=== PATIENT | female | born 1995 | race Hispanic/Latino ===

== ENCOUNTER 2018-12-18 00:03 | Emergency (ER) | payer SELFPAY ==
[2018-12-18] MEDS ORDERED: FAMOTIDINE 20 MG TAB ONE (00:42)
[2018-12-18] MEDS ORDERED: predniSONE 20 MG TAB ONE (00:42)
[2018-12-18] MEDS ORDERED: ALBUTEROL 2.5 MG/3 ML NEB SOL ONE (00:42)
--- NOTE | 2018-12-18 01:11 | ER ---
Nurse's Notes [facility] Name: Tonya Barrera Age: 23 yrs Sex: Female : 1995 Arrival Date: 12/18/2018 Time: 00:06 Bed 5 Private MD: Diagnosis: Bronchitis, not specified as acute or chronic Presentation: 12/18 00:22 Presenting complaint: Patient states: Cough x 2 weeks, but states she now has pain to lp1 both sides of chest when she coughs; Denies any fever. Transition of care: patient was not received from another setting of care. Onset of symptoms was December 18, 2018. Risk Assessment: Do you want to hurt yourself or someone else? Patient reports no desire to harm self or others. Initial Sepsis Screen: Does the patient meet any 2 criteria? No. Patient's initial sepsis screen is negative. Does the patient have a suspected source of infection? No. Patient's initial sepsis screen is negative. Care prior to arrival: None. 00:22 Method Of Arrival: Ambulatory lp1 00:22 Acuity: TEMO 4 lp1 Historical: - Allergies: 00:24 No Known Allergies; lp1 - Home Meds: 00:24 control daily [Active]; lp1 - PMHx: 00:24 Asthma; lp1 - PSHx: 00:24 Cholecystectomy; lp1 - Immunization history:: Adult Immunizations up to date, Flu vaccine is not up to date. - Social history:: Smoking status: Patient/guardian denies using tobacco. - Ebola Screening: : No symptoms or risks identified at this time. Screenin:36 Abuse screen: Denies threats or abuse. Denies injuries from another. Nutritional lp1 screening: No deficits noted. Tuberculosis screening: No symptoms or risk factors identified. Fall Risk None identified. Assessment: 00:33 General: Appears in no apparent distress. Behavior is calm. Pain: Complains of pain in lp1 left lateral anterior chest and right lateral anterior chest Pain currently is 6 out of 10 on a pain scale. Aggravated by coughing. Neuro: No deficits noted. Cardiovascular: No deficits noted. Respiratory: Reports cough that is dry, persistent Respiratory effort is even, unlabored, Respiratory pattern is regular, Breath sounds are clear bilaterally. GI: No deficits noted. : No signs and/or symptoms were reported regarding the genitourinary system. EENT: No signs and/or symptoms were reported regarding the EENT system. Derm: Skin is pink, warm \T\ dry. Musculoskeletal: No deficits noted. 00:45 Reassessment: Patient returned from radiology. lp1 Vital Signs: 00:24 BP 145 / 95; Pulse 100; Resp 20; Temp 99(O); Pulse Ox 100% on R/A; Weight 104.33 kg; lp1 Height 5 ft. 2 in. (157.48 cm); Pain 6/10; 00:24 Body Mass Index 42.07 (104.33 kg, 157.48 cm) lp1 ED Course: 00:06 Patient arrived in ED. am2 00:10 [facility] snw 00:10 Demar Anguiano MD is Attending Physician. snw 00:21 Elise Smyth RN is Primary Nurse. lp1 00:23 Triage completed. lp1 00:25 Arm band placed on left wrist. lp1 00:32 Patient moved to radiology via wheelchair. kw 00:32 X-ray completed. Patient tolerated procedure well. kw 00:32 Patient moved back from radiology. kw 00:32 Chest Pa And Lat (2 Views) XRAY In Process Unspecified. EDMS 00:36 Patient has correct armband on for positive identification. lp1 00:36 No provider procedures requiring assistance completed. Patient did not have IV access lp1 during this emergency room visit. Administered Medications: 00:45 Drug: predniSONE 40 mg Route: PO; lp1 01:26 Follow up: Response: No adverse reaction lp1 00:46 Drug: Pepcid 20 mg Route: PO; lp1 01:26 Follow up: Response: No adverse reaction lp1 00:46 Drug: Albuterol 2.5 mg Route: Inhalation; lp1 01:26 Follow up: Response: Marked relief of symptoms lp1 Outcome: 01:10 Discharge ordered by . snw 01:26 Discharged to home ambulatory. lp1 01:26 Condition: good 01:26 Discharge instructions given to patient, Instructed on discharge instructions, follow up and referral plans. medication usage, Demonstrated understanding of instructions, follow-up care, medications, Prescriptions given X 4. 01:27 Patient left the ED. lp1 Signatures: Dispatcher [employer] EDMS Cami Jain FNP-C FNP-Csnw [place] Laura, RN RN lp1 Rhianna Lewis am2
--- NOTE | 2018-12-18 01:11 | EDPHYS ---
Physician Documentation [facility] Name: Tonya Barrera Age: 23 yrs Sex: Female : 1995 Arrival Date: 12/18/2018 Time: 00:06 Bed 5 Private MD: ED Physician Demar Anguiano HPI: 12/18 00:24 This 23 yrs old Female presents to ER via Ambulatory with complaints of Cough. snw 00:24 The patient or guardian reports cough, described as moderate, with no sputum. Onset: snw The symptoms/episode began/occurred suddenly, 2 week(s) ago, and became persistent. Severity of symptoms: At their worst the symptoms were moderate. Associated signs and symptoms: Pertinent negatives: ear ache, fever, nausea, rhinorrhea, sore throat. The patient has not experienced similar symptoms in the past, but family has similar symptoms. The patient has not recently seen a physician. Historical: - Allergies: 00:24 No Known Allergies; lp1 - Home Meds: 00:24 control daily [Active]; lp1 - PMHx: 00:24 Asthma; lp1 - PSHx: 00:24 Cholecystectomy; lp1 - Immunization history:: Adult Immunizations up to date, Flu vaccine is not up to date. - Social history:: Smoking status: Patient/guardian denies using tobacco. - Ebola Screening: : No symptoms or risks identified at this time. ROS: 00:22 Constitutional: Negative for fever, chills, and weight loss, Eyes: Negative for injury, snw pain, redness, and discharge, ENT: Negative for injury, pain, and discharge, Neck: Negative for injury, pain, and swelling, Cardiovascular: Negative for chest pain, palpitations, and edema, Respiratory: Negative for shortness of breath, wheezing, and mild pleuritic chest pain, harsh dry cough Abdomen/GI: Negative for abdominal pain, nausea, vomiting, diarrhea, and constipation, Back: Negative for injury and pain, : Negative for injury, bleeding, discharge, and swelling, MS/Extremity: Negative for injury and deformity, Skin: Negative for injury, rash, and discoloration, Neuro: Negative for headache, weakness, numbness, tingling, and seizure, Psych: Negative for depression, anxiety, suicide ideation, homicidal ideation, and hallucinations. Exam: 00:21 Head/Face: Normocephalic, atraumatic. Eyes: Pupils equal round and reactive to light, snw extra-ocular motions intact. Lids and lashes normal. Conjunctiva and sclera are non-icteric and not injected. Cornea within normal limits. Periorbital areas with no swelling, redness, or edema. ENT: Nares patent. No nasal discharge, no septal abnormalities noted. Tympanic membranes are normal and external auditory canals are clear. Oropharynx with no redness, swelling, or masses, exudates, or evidence of obstruction, uvula midline. Mucous membranes moist. Neck: Trachea midline, no thyromegaly or masses palpated, and no cervical lymphadenopathy. Supple, full range of motion without nuchal rigidity, or vertebral point tenderness. No Meningismus. Chest/axilla: Normal chest wall appearance and motion. Nontender with no deformity. No lesions are appreciated. Cardiovascular: Regular rate and rhythm with a normal S1 and S2. No gallops, murmurs, or rubs. Normal PMI, no JVD. No pulse deficits. 00:21 Abdomen/GI: Soft, non-tender, with normal bowel sounds. No distension or tympany. No guarding or rebound. No evidence of tenderness throughout. Back: No spinal tenderness. No costovertebral tenderness. Full range of motion. Skin: Warm, dry with normal turgor. Normal color with no rashes, no lesions, and no evidence of cellulitis. MS/ Extremity: Pulses equal, no cyanosis. Neurovascular intact. Full, normal range of motion. Neuro: Awake and alert, GCS 15, oriented to person, place, time, and situation. Cranial nerves II-XII grossly intact. Motor strength 5/5 in all extremities. Sensory grossly intact. Cerebellar exam normal. Normal gait. Psych: Awake, alert, with orientation to person, place and time. Behavior, mood, and affect are within normal limits. 00:21 Constitutional: The patient appears alert, awake, obese. 00:21 Respiratory: the patient does not display signs of respiratory distress, Respirations: normal, shallow respirations, tachypnea, Breath sounds: are clear throughout, bronchitic cough. Vital Signs: 00:24 BP 145 / 95; Pulse 100; Resp 20; Temp 99(O); Pulse Ox 100% on R/A; Weight 104.33 kg; lp1 Height 5 ft. 2 in. (157.48 cm); Pain 02/03; 00:24 Body Mass Index 42.07 (104.33 kg, 157.48 cm) lp1 MDM: 00:15 Patient medically screened. snw 01:13 Data reviewed: vital signs, nurses notes. Data interpreted: Pulse oximetry: on room air snw is 100 %. Interpretation: normal. Counseling: I had a detailed discussion with the patient and/or guardian regarding: the historical points, exam findings, and any diagnostic results supporting the discharge/admit diagnosis, the presence of at least one elevated blood pressure reading (>120/80) during this emergency department visit, the need for outpatient follow up, to return to the emergency department if symptoms worsen or persist or if there are any questions or concerns that arise at home. Special discussion: I have referred the patient to see his PCP for further evaluation of high blood pressure. Based on the history and exam findings, there is no indication for further emergent testing or inpatient evaluation. I discussed with the patient/guardian the need to see the primary care provider for further evaluation of the symptoms. 12/18 00:21 Order name: Chest Pa And Lat (2 Views) XRAY snw Administered Medications: 00:45 Drug: predniSONE 40 mg Route: PO; lp1 01:26 Follow up: Response: No adverse reaction lp1 00:46 Drug: Pepcid 20 mg Route: PO; lp1 01:26 Follow up: Response: No adverse reaction lp1 00:46 Drug: Albuterol 2.5 mg Route: Inhalation; lp1 01:26 Follow up: Response: Marked relief of symptoms lp1 Disposition: 02:47 Co-signature as Attending Physician, Demar Anguiano MD. rn Disposition: 12/18/18 01:10 Discharged to Home. Impression: Bronchitis, not specified as acute or chronic. - Condition is Stable. - Discharge Instructions: Acute Bronchitis, Adult, Hypertension, How to Use an Inhaler, Cool Mist Vaporizer, Cough, Adult. - Prescriptions for Tessalon Perles 100 mg Oral Capsule - take 1 capsule by ORAL route every 8 hours As needed; 15 capsule. Prednisone 20 mg Oral Tablet - take 2 tablet by ORAL route once daily for 5 days; 10 tablet. Albuterol Sulfate 90 mcg/actuation - inhale 1-2 puff by INHALATION route every 4-6 hours; 1 Inhaler. Pepcid 20 mg Oral Tablet - take 1 tablet by ORAL route once daily; 20 tablet. - Work release form, Medication Reconciliation Form, Thank You Letter, Antibiotic Education, Prescription Opioid Use form. - Follow up: Emergency Department; When: As needed; Reason: Worsening of condition. Follow up: Private Physician; When: 2 - 3 days; Reason: Recheck today's complaints, Continuance of care, Re-evaluation by your physician. Signatures: Dispatcher [employer] EDKS Cami Jain, ANANTH-C PAINTING MANAGER-Csnw Demar Anguiano MD MD rn Elise Smyth RN RN lp1 Corrections: (The following items were deleted from the chart) 01:27 01:10 12/18/2018 01:10 Discharged to Home. Impression: Bronchitis, not specified as lp1 acute or chronic. Condition is Stable. Forms are Medication Reconciliation Form, Thank You Letter, Antibiotic Education, Prescription Opioid Use. Follow up: Emergency Department; When: As needed; Reason: Worsening of condition. Follow up: Private Physician; When: 2 - 3 days; Reason: Recheck today's complaints, Continuance of care, Re-evaluation by your physician. snw
--- NOTE | 2018-12-18 08:01 | RAD REPORT ---
EXAM DESCRIPTION: Ford Magana (2 Views)12/18/2018 12:34 am CLINICAL HISTORY: Cough COMPARISON: None FINDINGS: The lungs appear clear of acute infiltrate. The heart is normal size IMPRESSION: No acute abnormalities displayed
== END 2018-12-18 01:27 | disposition home or self-care (01) ==
LOC: ER 00:03
DX: J40 Bronchitis, not specified as acute or chronic (principal)
CPT/HCPCS: 71046; 99284; J7512

== ENCOUNTER 2019-11-11 11:27 | Emergency (ER) | payer SELFPAY ==
--- OUTSIDE RECORDS SUMMARY | 2019-11-11 11:29 | XMS REPORT ---
:1995 [facility] Address [address] [place] [address] [address] [place] [address] Care Team Providers Name Role Phone Unavailable Unavailable Unavailable Problems This patient has no known problems. Allergies, Adverse Reactions, Alerts This patient has no known allergies or adverse reactions. Medications This patient has no known medications.
--- OUTSIDE RECORDS SUMMARY | 2019-11-11 11:29 | XMS REPORT | Summary of Care ---
:1995 Author Organization [facility] [place] Address [address] [place] [address] Care Team Providers Name Role Phone Pcp, Patient Does Not Have A Primary Care Provider Encounter Details Date Type Department Care Team Description 04/30/2019 Orders Only [facility] Doctor Unassigned, No [address] [facility] [place] [address] [address] [place] [address] Allergies No Known Allergiesdocumented as of this encounter (statuses as of 04/30/2019) Medications Medication Sig Dispensed Refills Start Date End Date Status sod Use 1 Bottle in 1 Each 0 12/20/2018 Active gwjrq-[id number] each nostril 2 bottle (NEILMED SINUS (two) times daily. RINSE COMPLETE) Use in hot shower pkdvIndications: Rib 1 hour before pain, Cough, Acute bedtime otitis media, unspecified otitis media type, Postnasal drip, Costochondritis, acute promethazine-codeine Take 5 mL by mouth 120 mL 0 12/20/2018 Active 6.25-10 mg/5 mL 4 (four) times syrupIndications: Rib daily as needed pain, Cough, Acute for Cough. otitis media, unspecified otitis media type, Postnasal drip, Costochondritis, acute loratadine 10 mg Take 1 tablet by 30 tablet 0 12/20/2018 Active tabletIndications: Rib mouth daily. pain, Cough, Acute otitis media, unspecified otitis media type, Postnasal drip, Costochondritis, acute documented as of this encounter (statuses as of 04/30/2019) Active Problems No known active problemsdocumented as of this encounter (statuses as of 2018) Social History Tobacco Use Types Packs/Day Years Used Date Never Assessed Sex Assigned at Date Recorded Not on file Job Start Date Occupation Industry Not on file Not on file Not on file Travel History Travel Start Travel End No recent travel history available. documented as of this encounter Last Filed Vital Signs Not on filedocumented in this encounter Plan of Treatment Health Maintenance Due Date Last Done Comments VARICELLA VACCINES (1 of 2 - 13+ 2007 2-dose series) HPV VACCINES (1 - Female 3-dose 2009 series) DTaP,Tdap,and Td Vaccines (1 - 2013 Tdap) PAP SMEAR 2015 INFLUENZA VACCINE (#1) 2019 PNEUMOCOCCAL 0-64 YEARS COMBINED Aged Out No longer eligible based on SERIES patient's age to complete this topic documented as of this encounter Procedures Procedure Name Priority Date/Time Associated Diagnosis Comments NOTICE OF PRIVACY Routine 04/30/2019 3:23 PM CDT PRACTICES documented in this encounter Results Not on filedocumented in this encounter Insurance Payer Benefit Plan Subscriber ID Effective Phone Address Type / Group Dates [employer] [place] [employer] [place] xxxxxxxxx 2019-[place] [phone] Medicaid WOMEN WOMEN nt [address] [place] [address] documented as of this encounter
--- OUTSIDE RECORDS SUMMARY | 2019-11-11 11:30 | XMS REPORT | Summary of Care ---
:1995 Author Organization [facility] Address [address] [place] [address] Care Team Providers Name Role Phone Caty Islas Primary Care Provider Encounter Details Date Type Department Care Team Description 10/30/2019 Orders Only [facility] Doctor Unassigned, No [address] [facility] Name [place] [phone] [place] [address] Allergies No Known Allergiesdocumented as of this encounter (statuses as of 10/30/2019) Medications Medication Sig Dispensed Refills Start Date End Date Status ALBUTEROL SULFATE HFA INHALE Inhale. 0 Active documented as of this encounter (statuses as of 10/30/2019) Active Problems Problem Noted Date Morbid obesity with body mass index (BMI) greater than or equal to 50 2018 Irregular menses 04/30/2019 Weight gain 04/30/2019 Acanthosis nigricans 04/30/2019 documented as of this encounter (statuses as of 10/30/2019) Social History Tobacco Use Types Packs/Day Years Used Date Former Smoker Cigarettes Quit: 2017 Smokeless Tobacco: Never Used Alcohol Use Drinks/Week oz/Week Comments Yes occasional Sex Assigned at Date Recorded Not on [...] DTaP,Tdap,and Td Vaccines (1 - 2013 Tdap) INFLUENZA VACCINE (#1) 2019 PAP SMEAR 04/30/2022 04/30/2019 PNEUMOCOCCAL 0-64 YEARS COMBINED Aged Out No longer eligible based on SERIES patient's age to complete this topic documented as of this encounter Procedures Procedure Name Priority Date/Time Associated Diagnosis Comments CONSENT/REFUSAL FOR Routine 10/30/2019 1:01 PM GEOGRAPHICAL HISTORIAN DIAGNOSIS AND TREATMENT documented in this encounter Results Not on filedocumented in this encounter Insurance Payer Benefit Plan Subscriber ID Effective Phone Address Type / Group Dates [facility]-Prese [phone] Medicaid WOMEN nt [address] [place] [address] documented as of this encounter Advance Directives Name Relationship Healthcare Agent Communication Relationship Yahir Michaels Significant Other Primary healthcare agent
--- OUTSIDE RECORDS SUMMARY | 2019-11-11 11:30 | XMS REPORT | Summary of Care ---
:1995 Author Organization [facility] Address [address] [place] [address] Care Team Providers Name Role Phone Cayt Islas [facility] Primary Care Provider Reason for Visit Reason Comments Well Woman Exam Encounter Details Date Type Department Care Team Description 04/30[facility], Well woman [facility] (Primary Dx); [facility] Morbid obesity with body mass index (BMI) greater than or equal to 50; [address] Irregular menses; [place], [place] Screen for STD (sexually transmitted disease); [address] [place] [address] Weight gain [phone] Allergies No Known Allergiesdocumented as of this encounter (statuses as of 04/30/2019) Medications Medication Sig Dispensed Refills Start Date End Date Status ALBUTEROL SULFATE Inhale. 0 Active HFA INHALE sod Use 1 Bottle 1 Each 0 12/20/2018 04/30/2019 Discontinued [id number]-[id number] in each z bottle (NEILMED nostril 2 SINUS RINSE (two) times COMPLETE) daily. Use in pkdvIndications: hot shower 1 Rib pain, Cough, hour before Acute otitis bedtime media, unspecified otitis media type, Postnasal drip, Costochondritis, acute promethazine-codei Take 5 mL by 120 mL 0 12/20/2018 04/30/2019 Discontinued ne 6.25-10 mg/5 mL mouth 4 (four) syrupIndications: times daily as Rib pain, Cough, needed for Acute otitis Cough. media, unspecified otitis media type, Postnasal drip, Costochondritis, acute loratadine 10 mg Take 1 tablet 30 tablet 0 12/20/2018 04/30/2019 Discontinued tabletIndications: by mouth Rib pain, Cough, daily. Acute otitis media, unspecified otitis media type, Postnasal drip, Costochondritis, acute documented as of this encounter (statuses as of 04/30/2019) Active Problems Problem Noted Date Morbid obesity with body mass index (BMI) greater than or equal to 50 2018 Irregular menses 04/30/2019 Weight gain 04/30/2019 Acanthosis nigricans 04/30/2019 documented as of this encounter (statuses as of 04/30/2019) Social History Tobacco Use Types Packs/Day Years Used Date Former Smoker Cigarettes Quit: 2016 Smokeless Tobacco: Never Used Tobacco Cessation: Counseling Given: Yes Alcohol Use Drinks/Week oz/Week Comments Yes occasional Sex Assigned at Date Recorded Not on file Job Start Date Occupation Industry Not on file Not on file Not on file Travel History Travel Start Travel End No recent travel history available. documented as of this encounter Last Filed Vital Signs Vital Sign Reading Time Taken Comments Blood Pressure 124/86 04/30/2019 3:49 PM CDT Pulse 71 04/30/2019 3:49 PM CDT Temperature 36.6 C (97.9 F) 04/30/2019 3:49 PM CDT Respiratory Rate 16 04/30/2019 3:49 PM CDT Oxygen Saturation - - Inhaled Oxygen Concentration - - Weight 135.8 kg (299 lb 5 oz) 04/30/2019 3:49 PM CDT Height 160 cm (5' 3") 04/30/2019 3:49 PM CDT Body Mass Index 53.02 04/30/2019 3:49 PM CDT documented in this encounter Patient Instructions Patient InstructionsFloridalma Moreno LVN - 04/30/2019 3:15 PM CDT Clinical Breast Exam Many health organizations recommend a yearly clinical breast exam. This exam may be done by a income tax investigator, family healthcare provider, nurse practitioner, nurse senior behavioral scientist, or specially trained nurse. Yearly breast exams help tomake surethat breast conditions are found early. Your healthcare providers role A healthcare professional knows the tests and follow-up care needed if a problem is found. Your clinical exam is also a great time to ask questions about breast self-exams. You can find out if yourechecking your breasts in the best way. Or you may want to ask how , breast implants, or breast reduction surgery affect the way you should check your breasts. Diagnostic tests If a clinical exam reveals a breast change, you may have other tests to find out more. These tests may include: Mammography. A low-dose X-ray of your breast tissue. Ultrasound. An imaging test that uses sound waves to create images of your breast. Biopsy. A small amount of breast tissue is removed by needle or by a cut ( incision). The tissue is then checked under a microscope. Guidelines for having clinical breast exams The [employer] recommends that starting at age 29, you should have a clinical breast exam every 1 to 3 years. After age 40, have a clinical breast exam each year. If youre at higher risk for breast cancer, you may need exams more often. Risk factors for breast cancer may include: Being over 50 or postmenopausal Having a family history of breast cancer Having the BRCA1 or BRCA2 gene mutation or certain other gene mutations Having more menstrual periods due to starting menstruation early(before age 12) or having a late menopause (after age 55) Having no pregnancies Having a first after age 30 Being obese Having a history of radiation treatment to your chest area Exposure to BRAULIO during your mother's Not being active Drinking too much alcohol Having dense breast tissue Taking hormone therapy after menopause Other health organizations have different recommendations. Talk with your healthcare provider about what is best for you. Date Last Reviewed: 03/27/201719992312-1930 [employer]. [address] [place] [address]. All rights reserved. This information is not intended as a substitute for professional medical care. Always follow your healthcare professional's instructions. Breast Health: Breast Self-Awareness What is breast self-awareness? Breast self-awareness is knowing how your breasts normally look and feel. Your breasts change as yougo through different stages of your life. So its important to learn what is normal for your breasts. Breast self-awareness helps you notice any changes in your breasts right away. Report any changesto your healthcare provider. Why is breast self-awareness important? Many experts now say that women should focus on breast self-awareness instead of doing a breast self-examination (BSE). These experts include the [place] [employer], the U.S. Preventive Services Task Force, and the [place] [employer]. Some experts even advise notteaching women to do a BSE. Thats because research hasnt shown a clear benefit to doing BSEs. Breast self-awareness is different than a BSE. Breast self-awareness isnt about following a certain method and schedule. Its about knowing what's normal for your breasts. That way you can notice even small changes right away. If you see any changes, report them to your healthcare provider. Changes to look for Call your healthcare provider if you find any changes in your breasts that concern you. These changes may include: A lump Nipple discharge other than breastmilk, especially a bloody discharge Swelling A change in size or shape Skin irritation, such as redness, thickening, or dimpling of the skin Swollen lymph nodes in the armpit Nipple problems, such as pain or redness If you find a lump Contact your provider if you find lumpiness in one breast, feel something different in the tissue, or feel a definite lump. Sometimes lumpiness may be due to menstrual changes. But there may be reason for concern. Your provider may want to see you right away if you have: Nipple discharge that is bloody Skin changes on your breast, such as dimpling or puckering Its normal to be upset if you find a lump. But its important to contact your provider right away. Remember that most breast lumps are benign. This means they are not cancer. Date Last Reviewed: 03/27/201719991795-5864 [employer]. [address] [place] [address]. All rights reserved. This information is not intended as a substitute for professional medical care. Always follow your healthcare professional's instructions. Prevention Guidelines,Women Ages 18 to 39 Screening tests and vaccines are an important part of managing your health. A screening test is doneto find possible disorders or diseases in people who don' t have any symptoms. The goal is to find a disease early so lifestyle changes can be made and you can be watched more closely to reduce the riskof disease, or to detect it early enough to treat it most effectively. Screening tests are not considered diagnostic, but are used to determine if more testing is needed. Health counseling is essential, too. Below are guidelines for these, for women ages 18 to 39. Talk with your healthcare provider tomake sure youre up-to- date on what you need. Screening Who needs it How often Alcohol misuse All women in this age group At routine exams Blood pressure All women in this age group Yearly checkup if your blood pressure is normal Normal blood pressure is less than 120/80 mm Hg If your blood pressure reading is higher than normal, follow the advice of your healthcare provider Breast cancer All women in this age group should talk with their healthcare providers about the needfor clinical breast exams (CBE)1 Clinical breast exam every 3 years1 Cervical cancer Women ages 21 and older Women between ages 21 and 29 should have a Pap test every 3 years; women between ages 30 and 65 are advised to have a Pap test plus an HPV test every 5 years Chlamydia Sexually active women ages 25 and younger, and women at increased risk for infection (suchas having multiple sex partners) Every year if you're at risk or have symptoms Depression All women in this age group At routine exams Type 2 diabetes, prediabetes All women with no symptoms who are overweight or obese and have 1 or more other risk factors for diabetes At least every 3 years. Also, testing for diabetes during after the 24th week. Type 2 diabetes, prediabetes All women diagnosed with gestational diabetes Lifelong testing every 3 years Type 2 diabetes All women with prediabetes Every year Gonorrhea Sexually active women at increased risk for infection At routine exams Hepatitis C Anyone at increased risk At routine exams HIV All women should be tested at least once for HIV between the ages of 13 and 64 At routine exams.Those with risk factors for HIV should be tested at least annually. Obesity All women in this age group At routine exams Syphilis Women at increased risk for infection should talk with their healthcare provider At routineexams Tuberculosis Women at increased risk for infection should talk with their healthcare provider Ask your healthcare provider Vision All women in this age group At least 1 complete exam in your 20s, and 2 in your 30s Vaccine2 Who needs it How often Chickenpox (varicella) All women in this age group who have no record of this infection or vaccine 2doses; the second dose should be given 4 to 8 weeks after the first dose Hepatitis A Women at increased risk for infection should talk with their healthcare provider 2 dosesgiven at least 6 months apart Hepatitis B Women at increased risk for infection should talk with their healthcare provider 3 dosesover 6 months; second dose should be given 1 month after the first dose; the third dose should be given at least 2 months after the second dose and at least 4 months after the first dose Haemophilus influenzaeType B (HIB) Women at increased risk for infection should talk with their healthcare provider 1 to 3 doses Human papillomavirus (HPV) All women in this age group up to age 26 3 doses; the second dose should be given 1 to 2 months after the first dose and the third dose given 6 months after the first dose Influenza (flu) All women in this age group Once a year Measles, mumps, rubella (MMR) All women in this age group who have no record of these infections or vaccines 1 or 2 doses Meningococcal Women at increased risk for infection should talk with their healthcare provider 1 or more doses Pneumococcal conjugate vaccine (PCV13)and pneumococcal polysaccharide vaccine(PPSV23) Women at increased risk for infection should talk with their healthcare provider PCV13: 1 dose ages 19 to 65 (protects against 13 types of pneumococcal bacteria) PPSV23: 1 to2 doses through age 64, or 1 dose at 65 or older (protects against 23 types of pneumococcal bacteria) Tetanus/diphtheria/pertussis (Td/Tdap) booster All women in this age group Td every 10 years, or a one-time dose of Tdap instead of a Td booster after age 18 , then Td every 10 years Counseling Who needs it How often BRCA gene mutation testing for breast and ovarian cancer susceptibility Women with increased risk for having gene mutation When your risk is known Breast cancer and chemoprevention Women at high risk for breast cancer When your risk is known Diet and exercise Women who are overweight or obese When diagnosed, and then at routine exams Domestic violence Women at the age in which they are able to have children At routine exams Sexually transmitted infection prevention Women who are sexually active At routine exams Skin cancer Prevention of skin cancer in fair-skinned adults At routine exams Use of tobacco and the health effects it can cause All women in this age group Every visit 1 According to the ACS, women ages 20 to 39 years should have a clinical breast exam (CBE) as part of their routine health exam every 3 years. Breast self- exams are an option for women starting in their 20s.But the USPSTF does not recommend CBE. Date Last Reviewed: 05/27/201719993405-8608 [employer]. [address] [place] [address]. All rights reserved. This information is not intended as a substitute for professional medical care. Always follow your healthcare professional's instructions. Understanding STDs When it comes to sex, nothing is risk-free. Any sexual contact with the penis, vagina, anus, or mouth can spread a sexually transmitted disease (STD). The only sure way to prevent STDs is abstinence (not having sex). But there are ways to make sex safer. Use a latex condom each time you have sex. And choose your partner wisely. Use condoms for safer sex If you have sex, latex condoms provide the best protection against STDs. Latex condoms stop the exchange of body fluids that carry certain STDs. They also limit contact with affected skin. Be aware though, a condom doesnt cover all skin. So, affected skin that is not covered can still transfer disease. But you re safer with a condom than without one. Use a condom even if you use other control. While control methods like the pill or IUD help prevent , they do not protect against STDs. Choose the right condom Condoms made of latex prevent disease best. If youre allergic to latex, use polyurethane condoms instead. Male condoms fit over the penis. Female condoms line the vagina. Before buying a condom, read the label to be sure it prevents disease. Some novelty condoms dont. The right lubricant helps Buy lubricated condoms or use lubricant. This provides greater comfort and reduces the risk of condom breakage. Use only water-based lubricants. Dont use oil, lotion, or petroleum jelly. They can weaken the condom, causing breakage. Also, you may want to choose lubricants without nonoxynol-9. Its now known that this spermicide does not prevent disease and may cause irritation. Use condoms correctly For condoms to work, they must be used the right way. Keep these tips in mind: Use a new latex condom each time you have sex. Slip the condom on the penis before any contact ismade. When ready to withdraw, hold the rim of the condom as the penis pulls out. This prevents the condom from slipping off. Check the expiration date before using a condom. Dont store condoms in places that can get hot, such as a car or a wallet that is carried in a back pocket. Get to know your partner Safer sex is a process. It involves getting to know your partner and making informed choices. Ask each other how many partners you have had in the past, and how many you have now. Find out if either ofyou has an STD. If you decide to have sex, use a condom each time. Dont stop using condoms unlessyoure sure neither of you has other partners and youve both been tested to confirm you donthave STDs. Then stay free of disease by having sex only with each other (monogamy). Keep your cool Dont let alcohol or drugs cloud your judgment. They could lead you to have sex with someone you wouldnt have chosen if you were sober. Or, you might forget to use a condom. If you do plan to havesex, keep a latex condom with you. Dont wait until youre in the heat of passion to try to findone. Consider abstinence The only way to be sure you wont get an STD is to abstain from sex. Abstinence is a choice that many people make at some point in their lives. Maybe you want to wait until you are sure youre ready before you have sex. Maybe youd like a break from the responsibilities of sex for a while. Or maybe you just want to know your partner better before taking the next step. Abstinence is a choice youcan make now to protect your future. Date Last Reviewed: 07/27/201619992629-3683 [employer]. [address] [place] [address]. All rights reserved. This information is not intended as a substitute for professional medical care. Always follow your healthcare professional's instructions. Understanding HIV and AIDS If you know how HIV (human immunodeficiency virus) can get into your body and what happens once its there, youll be better prepared to protect yourself or others against this virus. A person withHIV can look and feel perfectly healthy. But that person can give HIV to others as soon as he or sheis infected with the virus. Note: Having unsafe or unprotected sex or sharing needles put you at risk for HIV. Talk with your healthcare provider about ways to protect yourself or a loved one from getting HIV. How HIV enters the body HIV is carried in semen, vaginal fluid, blood, and breast milk. During sex, HIV can enter the body through the fragile tissue that lines the vagina, penis, anus,and mouth. During drug use, tattooing, or body piercing, the virus can enter the bloodstream through a shared needle. A mother who has HIV can infect her child during childbirth and through . How HIV infection progresses After HIV enters the body, it attacks the immune system in stages. A person with HIV can infect others once the virus enters the bloodstream. HIV with no symptoms. A person with HIV may have no symptoms for years. A positive blood test for HIV antibodies 6 weeks to 6 months after HIV enters the body may be the only sign of infection. HIV with symptoms.Some people develop an illness similar to mononucleosis (or "mono") 2 to 4 weeksafter the virus enters the body. Symptoms may include swollen lymph glands, chills, fever, night sweats, weakness, weight loss, skin rashes, mouth ulcers, or sore throat. Symptoms may be mild at first and then slowly go away. In a very few individuals, symptoms may get progressively worse and last forlonger and longer periods. AIDS. AIDS is the last stage of HIV infection. Diseases and cancers begin to overcome the body. It is these diseases, not the virus itself, that cause . HIV may also attack the brain and nervous system, causing seizures and loss of memory and body movement. Date Last Reviewed: 06/27/201619990872-4713 [employer]. [address] [place] [address]. All rights reserved. This information is not intended as a substitute for professional medical care. Always follow your healthcare professional's instructions. Eating Heart-Healthy Foods Eating has a big impact on your heart health. In fact, eating healthier can improve several of your heart risks at once. For instance, it helps you manage weight, cholesterol, and blood pressure. Here are ideas to help you make heart- healthy changes without giving up allthe foods and flavors you love. Getting started Talk with your healthcare provider about eating plans, such as the DASH or Mediterranean diet. You may also be referred to a dietitian. Change a few things at a time. Give yourself time to get used to a few eating changes before adding more. Work to create a tasty, healthy eating plan that you can stick to for the rest of your life. Goals for healthy eating Below are some tips to improve your eating habits: Limit saturated fats and trans fats. Saturated fats raise your levels of cholesterol, so keep these fats to a minimum. They are found in foods such as fatty meats, whole milk, cheese, and palm and coconut oils. Avoid trans fats because they lower good cholesterol as well as raise bad cholesterol. Trans fats are most often found in processed foods. Reduce sodium (salt) intake. Eating too much salt may increase your blood pressure. Limit your sodium intake to 2,300 milligrams (mg) per day(the amount in 1 teaspoon of salt), or less if your healthcare provider recommends it. Dining out less often and eating fewer processed foods are two great ways to decrease the amount of salt you consume. Managing calories. A calorie is a unit of energy. Your body tamayo calories for fuel, but if you eat more calories than your body tamayo, the extras are stored as fat. Your healthcare provider can help you create a diet plan to manage your calories. This will likely include eating healthier foods as well as exercising regularly. To help you track your progress, keep a diary to record what you eat and how often you exercise. Choose the right foods Aim to make these foods ivan of your diet. If you have diabetes, you may have different recommendations than what is listed here: Fruits and vegetables provide plenty of nutrients without a lot of calories. At meals, fill half your plate with these foods. Split the other half of your plate between whole grains and lean protein. Whole grains are high in fiber and rich in vitamins and nutrients. Good choices include whole-wheat bread, pasta, and brown rice. Lean proteins give you nutrition with less fat. Good choices include fish, skinless chicken, and beans. Low-fat or nonfat dairy provides nutrients without a lot of fat. Try low-fat or nonfat milk, cheese, or yogurt. Healthy fats can be good for you in small amounts. These are unsaturated fats , such as olive oil,nuts, and fish. Try to have at least 2 servings per week of fatty fish, such as salmon, sardines, mackerel, rainbow trout, and albacore tuna. These contain omega-3 fatty acids, which are good for your heart. Flaxseed is another source of a heart-healthy fat. More on heart-healthy eating Read food labels Healthy eating starts at the grocery store. Be sure to pay attention to food labels on packaged foods. Look for products that are high in fiber and protein, and low in saturated fat, cholesterol, and sodium. Avoid products that contain trans fat. And pay close attention to serving size. For instance, if you plan to eat two servings, double all the numbers on the label. Prepare food right A woodard part of healthy cooking is cutting down on added fat and salt. Look on the internet for lower-fat, lower-sodium recipes. Also, try these tips: Remove fat from meat and skin from poultry before cooking. Skim fat from the surface of soups and sauces. Broil, boil, bake, steam, grill, and microwave food without added fats. Choose ingredients that spice up your food without adding calories, fat, or sodium. Try these items: horseradish, hot sauce, lemon, mustard, nonfat salad dressings, and vinegar. For salt-free herbs and spices, try basil, cilantro, cinnamon, pepper, and clair. Date Last Reviewed: 05/27/201719992412-8731 [employer]. [address] [place] [address]. All rights reserved. This information is not intended as a substitute for professional medical care. Always follow your healthcare professional's instructions. Understanding USDA MyPlate The USDA (U.S. Department of Agriculture) has guidelines to help you make healthy food choices. These are called MyPlate. MyPlate shows the food groups that make up healthy meals using the image of a place setting. Before you eat, think about the healthiest choices for what to put onto your plate or into your cup or bowl. To learn more about building a healthy plate, visit www.choosemyplate.gov. The food groups Fruits. Any fruit or 100% fruit juice counts as part of the Fruit Group. Fruits may be fresh, canned, frozen, or dried, and may be whole, cut-up, or pureed. Make half your plate fruits and vegetables. Vegetables. Any vegetable or 100% vegetable juice counts as a member of the Vegetable Group. Vegetables may be fresh, frozen, canned, or dried. They can be served raw or cooked and may be whole, cut-up, or mashed. Make half your plate fruits and vegetables. Grains. All foods made from grains are part of the Grains Group. These include wheat, rice, oats,cornmeal, and barley such as bread, pasta, oatmeal, cereal, tortillas, and grits. Grains should be no more than a quarter of your plate. At least half of your grains should be whole grains. Protein. This group includes meat, poultry, seafood, beans and peas, eggs, processed soy products(like tofu), nuts (including nut butters), and seeds. Make protein choices no more than a quarter ofyour plate. Meat and poultry choices should be lean or low fat. Dairy. All fluid milk products and foods made from milk that contain calcium , like yogurt and cheese, are part of the Dairy Group. (Foods that have little calcium, such as cream, butter, and cream cheese, are not part of the group.) Most dairy choices should be low-fat or fat-free. Oils. These are fats that are liquid at room temperature. They include canola , corn, olive, soybean, and sunflower oil. Foods that are mainly oil include mayonnaise, certain salad dressings, and soft margarines. You should have only 5 to 7 teaspoons of oils a day. You probably already get this muchfrom the food you eat. Date Last Reviewed: 03/27/201719998522-9605 [employer]. [address] [place] [address], [place] [address]. All rights reserved. This information is not intended as a substitute for professional medical care. Always follow your healthcare professional's instructions. documented in this encounter Progress Notes Caty Islas FNP - 04/30/2019 3:15 PM CDT Chief complaint: Chief Complaint Patient presents with Well Woman Exam HPI Here for Well Woman Exam and contraceptive management. Patient desires nothing for contraception. Reviewed risks/benefits/alternative contraceptive methods. Denies cramps, vaginal discharge, genital lesions, breast pain and vaginal pain. Desires STD testing. Pt complains of irregular menses x 2 years. Prior to that menses were regular. She does report that she gain ~100lb over the course of 1.5 years do to life stressors and not taking the best care of herself. She reports she will sometimes go up to 3 months without menses. She does endorse hair growth on her chin area. She does desires in the near future. Pt reports no past or present history of physical, sexual, and emotional abuse. Rubella: titer ordered VZV: unknown, deferred BMI: Body mass index is 53.02 kg/m. Td: 2011 per patient Pap Smear: 2015 per patient, due today Gardasil: completed per patient Mammogram:N/A Guaiac:N/A Colonoscopy:N/A Histories OB History No data available Past Medical History: Diagnosis Date Anemia as a child Asthma ongoing, has PRN inhaler Irregular menses 04/30/2019 Family History Problem Relation Age of Onset Diabetes Mother Hypertension Mother High cholesterol Mother Other - see comments Mother Cancer Father lymphoma Other - see comments Brother autism High cholesterol Maternal Uncle Hypertension Maternal Uncle Depression Maternal Grandmother Diabetes Maternal Grandmother Hypertension Maternal Grandmother High cholesterol Maternal Grandmother No Significant Medical Problems Maternal Grandfather Heart Paternal Grandmother Family Status Relation Name Status Mo Alive Fa Bro Alive MAunt Alive MUnc Alive PAunt Alive PUnc Alive MGMo MGFa PGMo PGFa Past Surgical History: Procedure Laterality Date CHOLECYSTECTOMY 2017 Social History Socioeconomic History Marital status: Single Spouse name: Not on file Number of children: Not on file Years of education: Not on file Highest education level: Not on file Occupational History Not on file Social Needs Financial resource strain: Not on file Food insecurity: Worry: Not on file Inability: Not on file Transportation needs: Medical: Not on file Non-medical: Not on file Tobacco Use Smoking status: Former Smoker Types: Cigarettes Last attempt to quit: 2017 Years since quittin.6 Smokeless tobacco: Never Used Substance and Sexual Activity Alcohol use: Yes Comment: occasional Drug use: Never Sexual activity: Yes Partners: Male control/protection: None Comment: last sexual intercourse 04/27/2019 Lifestyle Physical activity: Days per week: Not on file Minutes per session: Not on file Stress: Not on file Relationships Social connections: Talks on phone: Not on file Gets together: Not on file Attends restorationist service: Not on file Active member of club or organization: Not on file Attends meetings of clubs or organizations: Not on file Relationship status: Not on file Intimate partner violence: Fear of current or ex partner: Not on file Emotionally abused: Not on file Physically abused: Not on file Forced sexual activity: Not on file Other Topics Concern Not on file Social History Narrative Methodist preference is Yazdanism. Patient lives with partner. Social History Substance and Sexual Activity Sexual Activity Yes Partners: Male control/protection: None Comment: last sexual intercourse 04/27/2019 Labs Labs are pending. Radiology No new radiology. Allergies Tonya has No Known Allergies. Medications oTnya has a current medication list which includes the following prescription(s ): albuterol sulfate. Review of Systems Constitutional: Positive for weight gain. HENT: Negative. Eyes: Negative. Respiratory: Negative. Breasts: Negative. Cardiovascular: Negative. Gastrointestinal: Negative. Genitourinary: Positive for menstrual problem. Musculoskeletal: Negative. Skin: Negative. Neurological: Negative. Psychiatric/Behavioral: Negative. Endocrine: Endocrine negativePositive for weight gain. BP 124/86 (BP Location: Right arm, Patient Position: Sitting, BP CUFF SIZE: Adult Medium) | Pulse 71 | Temp 36.6 C (97.9 F) (Oral) | Resp 16 | Ht 5 ' 3" (1.6 m) | Wt 299 lb 5 oz (135.8 kg) | LMP 04/08/2019 (Approximate) | BMI 53.02 kg/m Pregravid BMI: Could not be calculated Physical Exam Vitals reviewed. Constitutional: She is oriented to person, place, and time. She appears well- developed and well-nourished. Her body habitus is obese. Neck: No thyroid nodules and no thyromegaly palpated. Cardiovascular: Regular rate and rhythm. No murmur auscultated. Pulmonary/Chest: Breath sounds clear to auscultation. Normal inspiratory effort. Abdominal: Abdomen is soft. No mass palpated. No tenderness present. There is no hepatosplenomegaly. Neuro/Psychiatric: She has a normal mood and affect. She is oriented to person, place, and time. Skin: Skin normal. No lesion and no rash present. Hyperpigmentation to inguinal area and under breasts c/w acanthosis nigricans. Multiple tattoos present. Genitourinary Comments: Chaperoned by: Efren Huang MA Breast: Right breast exhibits no mass, no nipple discharge and no tenderness. Left breast exhibits no mass, no nipple discharge and no tenderness. Normal left breast and normal right breast External genitalia: Normal external genitalia appropriate for age. No labial lesion. Bladder: No tenderness. Normal bladder Vagina:Normal vagina. No lesion inspected. No abnormal vaginal discharge found. Cervix: Normal cervix. No lesion. No tenderness and no discharge present. Uterus: Uterus is normal size, normal position and non-tender. Bimanual exam limited by large body habitusNormal uterus Adnexa: Right adnexa without tenderness. Left adnexa without tenderness. Normal left adnexa and normal right adnexa Assessment/Plan 1. Well woman exam CBE performed, educated patient regarding self breast awareness. SBE monthly. Patient advised mammograms to begin at age 40 Encourage green leafy vegetables, lean meats and fruit in diet. Avoid fatty, fried, sugary foods. Increase H2O intake (1/2 body weight in ozs). Exercise 30 minutes daily x 7 days/week as tolerated. Follow up 1 year - PAP Smear-Liquid Based - RUBELLA SCREEN IGG 2. Morbid obesity with body mass index (BMI) greater than or equal to 50 The patient is asked to make an attempt to improve diet and exercise patterns to aid in medical management of this problem. - GLYCOSYLATED HEMOGLOBIN (A1C) - LIPID PANEL (10530)(TOTAL CHOLESTEROL, TRIGLYCERIDES, HDL) 3. Irregular menses Discussed possible causes including obesity and PCOS. Encouraged weight loss and healthy lifestyle. Discussed options such as OCPs to regulate menses, patient will consider. - POCT TEST - THYROID STIMULATING HORMONE 4. Screen for STD (sexually transmitted disease) Reviewed safe sex practices - GC & CHLAMYDIA AMPLIFIED ASSAY - TRICHOMONAS AMPLIFIED ASSAY - HIV 1/2 AG-AB WITH REFLEX - GALV ONLY - SYPHILIS IGG/IGM 5. Weight gain - THYROID STIMULATING HORMONE Discussed treatment options. Reviewed patient instructions and provided printed copy. This visit did not involve counseling and coordination that comprised more than 50% of the visit time. Floridalma Arriaza LVN - 04/30/2019 3:15 PM CDT24 year old presented to the clinic for WWE. 1) Previous BCM:none 2) Desired BCM: none 3) LMP:04/08/2019 4) Last [place]:04/27/2019 5) Last Pap:2014 Results:negative per patient 6) Tdap in last 10 years?yes per patient in 2011 HPV?completed in high school per patient 7) C/O irregular menses 8) Patient denies history of physical, emotional, or sexual abuse. Patient states she currently feels safe at home. documented in this encounter Plan of Treatment Date Type Specialty Care Team Description 05/05/2019 Beauty Parlor Cleaner Visit [facility], [facility] Name Type Priority Associated Diagnoses Date/Time PAP Smear-Liquid Based LAB Routine Well woman exam 04/30/2019 4:27 PM CDT GC & CHLAMYDIA AMPLIFIED LAB Routine Screen for STD (sexually 04/30/2019 4 :27 PM ASSAY transmitted disease) CDT TRICHOMONAS AMPLIFIED LAB Routine Screen for STD (sexually 04/30/2019 4: 27 PM ASSAY transmitted disease) CDT Name Type Priority Associated Diagnoses Order Schedule HIV 1/2 AG-AB WITH REFLEX LAB Routine Screen for STD (sexually Ordered: 11/2018 transmitted disease) GALV ONLY - SYPHILIS LAB Routine Screen for STD (sexually Ordered: 2018 IGG/IGM transmitted disease) THYROID STIMULATING LAB Routine Irregular menses Ordered: 04/30/2019 HORMONE Weight gain GLYCOSYLATED HEMOGLOBIN LAB Routine Morbid obesity with body Ordered: 04/30 (A1C) mass index (BMI) greater than or equal to 50 LIPID PANEL (64890)(TOTAL LAB Routine Morbid obesity with body Ordered: 11/2018 CHOLESTEROL, mass index (BMI) greater TRIGLYCERIDES, HDL) than or equal to 50 RUBELLA SCREEN IGG LAB Routine Well woman exam Ordered: 04/30/2019 Health Maintenance Due Date Last Done Comments [...] Procedure Name Priority Date/Time Associated Diagnosis Comments POCT TEST Routine 04/30/2019 4:22 PM Irregular menses Results for this CDT procedure are in the results section. documented in this encounter Results POCT TEST (04/30/2019 4:22 PM CDT) POCT PREG Negative On board controls acceptable Yes with C Line POCT PREG LOT # POCT PREG TEST DATE Specimen Urine - URINE, CLEAN CATCH documented in this encounter Visit Diagnoses Diagnosis Well woman exam - Primary Routine general medical examination at a health care facility Morbid obesity with body mass index (BMI) greater than or equal to 50 Irregular menses Irregular menstrual cycle Screen for STD (sexually transmitted disease) Screening examination for venereal disease Weight gain Abnormal weight gain documented in this encounter Insurance Payer Benefit Plan Subscriber ID Effective Phone Address Type / Group Dates [facility] xxxxxxxxx 2019-Prese [phone] Medicaid WOMEN nt [address] [place] [address] documented as of this encounter Advance Directives Name Relationship Healthcare Agent Communication Relationship Yahir Michaels Significant Other Primary healthcare agent
--- OUTSIDE RECORDS SUMMARY | 2019-11-11 11:30 | XMS REPORT | Summary of Care ---
:1995 Author Organization [facility] - Health Address [address] [place] [id number] Care Team Providers Name Role Phone Caty Islas Primary Care Provider Reason for Visit Reason Comments Cough Auth/Cert Status Reason Specialty Diagnoses / Referred By Referred To Procedures Contact Contact Emergency Medicine Diagnoses COUGHING,SORE THROAT [facility] [address] [place] [address] [place] [address] Encounter Details Date Type Department Care Team Description 10/30/2019 Emergency ADC-Emergency Dano Carrasco DO Pharyngitis, Department [address] [place] [address]. unspecified etiology [address] [place] [address] [address] 0711 (Primary Dx) [place] [address] [place], [place] [id number] Allergies No Known Allergiesdocumented as of this encounter (statuses as of 10/30/2019) Medications Medication Sig Dispensed Refills Start Date End Date Status ALBUTEROL SULFATE HFA Inhale. 0 Active INHALE methylPREDNISolone Take by mouth 21 Each 0 10/30/2019 Active (MEDROL, STEPHEN,) 4 mg SEE-INSTRUCTIONS tabletsIndications: . follow package Pharyngitis, unspecified directions etiology benzocaine-menthol Take 1 Lozenge 30 Lozenge 0 10/30/2019 Active (CEPACOL SORE THROAT, by mouth every 4 EVA-MEN,) (four) hours as lozengeIndications: needed for Sore Pharyngitis, unspecified throat. etiology documented as of this encounter (statuses as [...] Cigarettes Quit: 2016 Smokeless Tobacco: Never Used Alcohol Use Drinks/Week oz/Week Comments Yes occasional Sex Assigned at Date Recorded Not on file Job Start Date Occupation Industry Not on file Not on file Not on file Travel History Travel Start Travel End No recent travel history available. documented as of this encounter Last Filed Vital Signs Vital Sign Reading Time Taken Comments Blood Pressure 144/94 10/30/2019 1:14 PM [employer]IME PL[employer] OPER[employer] Pulse 110 10/30/2019 1:14 PM [employer]IME PLANT OPER[employer] Temperature 37.5 C (99.5 F) 10/30/2019 1:14 PM [employer] OPERATOR Respiratory Rate 20 10/30/2019 1:14 PM [employer] PL[employer] OPERATOR Oxygen Saturation - - Inhaled Oxygen Concentration - - Weight 135 kg (297 lb 9.9 oz) 10/30/2019 1:10 PM LIME PLANT OPERATOR Height - - Body Mass Index 52.72 04/30/2019 3:49 PM CDT documented in this encounter Discharge Instructions Dano Finney DO - 10/30/2019Follow up with your primary care provider for reevaluation. Return to ED if symptoms as documented in the discharge instructions. AttachmentsThe following attachments cannot be sent through Care Everywhere.Sore Throats, Self-Care for (Faroese)Pharyngitis, [facility] (Faroese )documented in this encounter Plan of Treatment Name Type Priority Associated Diagnoses Date/Time THROAT CULTURE LAB STAT Pharyngitis, unspecified 10/30/2019 1:26 PM LIME PLANT OPERATOR etiology Name Type Priority Associated Diagnoses Order Schedule THROAT CULTURE LAB Routine Pharyngitis, unspecified ONCE for 1 Occurrences etiology starting 10/30/2019 until 10/30/2019 Health Maintenance Due Date Last Done Comments [...] Procedure Name Priority Date/Time Associated Diagnosis Comments ADC,CLC OR LCC ONLY STAT 10/30/2019 1:26 PM Pharyngitis, Results for this - INFLUENZA A & B LIME PLANT OPERATOR unspecified etiology procedure are in DIRECT ANTIGEN the results section. RAPID STREP SCREEN STAT 10/30/2019 1:26 PM Pharyngitis, Results for this FOR GROUP A LIME PLANT OPERATOR unspecified etiology procedure are in the results section. NOTICE OF PRIVACY Routine 10/30/2019 1:01 PM PRACTICES LIME PLANT OPERATOR documented in this encounter Results RAPID STREP SCREEN FOR GROUP A (10/30/2019 1:26 PM LIME PLANT OPERATOR) Streptococcus pyogenes Negative Negative [facility] (group A) antigen [facility] Specimen Swab - THROAT Performing Organization Address [facility] Phone Number [facility] CLIA: [id number], [address] [place] [id number] ADC,CLC OR LCC ONLY - INFLUENZA A & B DIRECT ANTIGEN (10/30/2019 1:26 PM LIME PLANT OPERATOR) Influenza A Negative Negative [facility] Influenza B Negative Negative [facility] Specimen Swab - NARE, LEFT SIDE Performing Organization Address [facility]ode Phone Number [facility] CLIA: [id number], [address] [place] [id number] documented in this encounter Visit Diagnoses Diagnosis Pharyngitis, unspecified etiology - Primary documented in this encounter Advance Directives Name Relationship Healthcare Agent Communication Relationship Yahir Michaels Significant Other Primary healthcare agent
--- OUTSIDE RECORDS SUMMARY | 2019-11-11 11:30 | XMS REPORT | Summary of Care ---
:1995 Author Organization [facility] Address [address] [place] [address] Care Team Providers Name Role Phone Caty Islas [facility] Primary Care Provider Reason for Visit Reason Comments Well Woman Exam Encounter Details Date Type Department Care Team Description [facility], Well woman exam (Primary Dx); [facility] Morbid obesity with body mass index (BMI) greater than or equal to 50; [address] Irregular menses; [place], [place] A Screen for STD (sexually transmitted disease); [address] [place] [address] Weight gain [phone] Allergies No Known Allergiesdocumented as of this encounter (statuses as of 04/30/2019) Medications Medication Sig Dispensed Refills Start Date End Date Status ALBUTEROL SULFATE Inhale. 0 Active HFA INHALE sod Use 1 Bottle 1 Each 0 12/20/2018 04/30/2019 Discontinued [id number]-[id number] in each z bottle (NEILMED nostril 2 [...] This exam may be done by a housekeeper home, family healthcare provider, nurse practitioner, nurse tuber machine operator helper, or specially trained nurse. Yearly breast exams [...] Guidelines for having clinical breast exams The [place] [employer] recommends that [...] is best for you. Date Last Reviewed: 03/27/201719993259-[address] [employer] [place] [address]. All rights reserved. This information is not [...] breast self-examination (BSE). These experts include the [place] [employer], the U.S. Preventive Services Task Force, and the [place] [employer] and Gynecologists. Some experts [...] they are not cancer. Date Last Reviewed: 03/27/201719998258-[address] [employer] [place] [address]. All rights reserved. This information is not [...] does not recommend CBE. Date Last Reviewed: 05/27/201719993982-0816 [employer]. [address] [place] [address]. All rights reserved. This information is not [...] to protect your future. Date Last Reviewed: 07/27/201619999095-8321 [employer]. [address] [place] [address]. All rights reserved. This information is not [...] memory and body movement. Date Last Reviewed: 06/27/201619994338-1600 [employer]. [address] [place] [address]. All rights reserved. This information is not [...] cinnamon, pepper, and clair. Date Last Reviewed: 05/27/201719990001-7968 [employer]. [address] [place] [address]. All rights reserved. This information is not [...] the food you eat. Date Last Reviewed: 03/27/201719993357-67[address] [employer]. [address] [place] [address], [place] [address]. All rights reserved. This information is not [...] file Gets together: Not on file Attends pentecostalism service: Not on file Active member of [...] Concern Not on file Social History Narrative Sikhism preference is Zoroastrian. Patient lives with partner. Social History Substance and Sexual Activity Sexual Activity Yes Partners: Male control/protection: None Comment: last sexual intercourse 04/27/2019 Labs Labs are pending. Radiology No new radiology. Allergies Tonya has No Known Allergies. Medications Tonya has a current medication list which includes [...] - GLYCOSYLATED HEMOGLOBIN (A1C) - LIPID PANEL (31822)(TOTAL CHOLESTEROL, TRIGLYCERIDES, HDL) 3. Irregular menses Discussed [...] Desired BCM: none 3) LMP:04/08/2019 4) Last Shoshoni:04/27/2019 5) Last Pap:2014 Results:negative per patient 6) Tdap in last 10 years?yes per patient in 2011 HPV?completed in high school per patient 7) C/O irregular menses 8) Patient denies history of physical, emotional, or sexual abuse. Patient states she currently feels safe at home. documented in this encounter Plan of Treatment Date Type Specialty Care Team Description 05/05/2019 Putty Patcher Visit [facility]ell[facility] Lab, [facility] Name [...] than or equal to 50 LIPID PANEL (51119)(TOTAL LAB Routine Morbid obesity with body Ordered: [...] Effective Phone Address Type / Group Dates [facility] xxxxxxxxx 2019-Prese [phone] Medicaid WOMEN nt [address] [place] [address] documented as of this encounter Advance Directives Name Relationship Healthcare Agent Communication Relationship Yahir Michaels Significant Other Primary healthcare agent
--- OUTSIDE RECORDS SUMMARY | 2019-11-11 11:30 | XMS REPORT | Summary of Care ---
:1995 Author Organization [facility] Address [address] [place] [address] Care Team Providers Name Role Phone Caty Islas [facility] Primary Care Provider Reason for Visit Reason Comments Well Woman Exam Encounter Details Date Type Department Care Team Description [facility], Well woman exam (Primary Dx); [facility] Morbid obesity with body mass index (BMI) greater than or equal to 50; [address] Irregular menses; [place], [place] A Screen for STD (sexually transmitted disease); [id number] [place] [address] Weight gain [phone] Allergies No Known Allergiesdocumented as of this encounter (statuses as of 04/30/2019) Medications Medication Sig Dispensed Refills Start Date End Date Status ALBUTEROL SULFATE Inhale. 0 Active HFA INHALE sod Use 1 Bottle 1 Each 0 12/20/2018 04/30/2019 Discontinued [id number]-[id number] in each z bottle (NEILMED nostril 2 [...] This exam may be done by a renal dietitian, family healthcare provider, nurse practitioner, nurse hand quilter, or specially trained nurse. Yearly breast exams [...] Guidelines for having clinical breast exams The [place] [employer]st[employer] and Gynec[employer] recommends that [...] is best for you. Date Last Reviewed: 03/27/201719993553-[address] [employer] [place] [address]. All rights reserved. This information is not [...] breast self-examination (BSE). These experts include the [place] [employer], the U.S. Preventive Services Task Force, and the [place] [employer] of Obstetricians and Gynecologists. Some experts [...] they are not cancer. Date Last Reviewed: 03/27/201719990836-[address] [employer] [place] [address]. All rights reserved. This information is not [...] does not recommend CBE. Date Last Reviewed: 05/27/201719992560-5595 The [employer]. [address] [place] [address]. All rights reserved. This information is not [...] to protect your future. Date Last Reviewed: 07/27/201619996113-8326 [employer]. [address] [place] [address]. All rights reserved. This information is not [...] memory and body movement. Date Last Reviewed: 06/27/201619990886-9138 [employer]. [address] [place] [address]. All rights reserved. This information is not [...] cinnamon, pepper, and clair. Date Last Reviewed: 05/27/201719993003-5154 [employer]. [address] [place] [address]. All rights reserved. This information is not [...] the food you eat. Date Last Reviewed: 03/27/201719996286-[address] [employer] [place] [address], [place] [address]. All rights reserved. This information is not [...] file Gets together: Not on file Attends sabianist service: Not on file Active member of [...] Concern Not on file Social History Narrative Restorationist preference is Protestant. Patient lives with partner. Social History Substance [...] - GLYCOSYLATED HEMOGLOBIN (A1C) - LIPID PANEL (22365)(TOTAL CHOLESTEROL, TRIGLYCERIDES, HDL) 3. Irregular menses Discussed [...] Desired BCM: none 3) LMP:04/08/2019 4) Last [place]:04/27/2019 5) Last Pap:2014 Results:negative per patient 6) Tdap in last 10 years?yes per patient in 2011 HPV?completed in high school per patient 7) C/O irregular menses 8) Patient denies history of physical, emotional, or sexual abuse. Patient states she currently feels safe at home. documented in this encounter Plan of Treatment Date Type Specialty Care Team Description 05/05/2019 Bushing And Broach Operator Visit [facility], [facility] Name Type Priority Associated Diagnoses Date/Time PAP [...] than or equal to 50 LIPID PANEL (31827)(TOTAL LAB Routine Morbid obesity with body Ordered: [...] Effective Phone Address Type / Group Dates [facility] xxxxxxxxx 2019-Prese [phone] Medicaid WOMEN nt [address] [place] [address] documented as of this encounter Advance Directives Name Relationship Healthcare Agent Communication Relationship Yahir Michaels Significant Other Primary healthcare agent
--- OUTSIDE RECORDS SUMMARY | 2019-11-11 11:30 | XMS REPORT | Summary of Care ---
:1995 Author Organization [facility] Address [address] [place] [address] Care Team Providers Name Role Phone Caty Islas [facility] Primary Care Provider Reason for Visit Reason Comments Well Woman Exam Encounter Details Date Type Department Care Team Description 04/30[facility]2019 [facility], Well woman exam (Primary Dx); [facility] Morbid obesity with body mass index (BMI) greater than or equal to 50; [address] Irregular menses; [place], [place] A Screen for STD (sexually transmitted disease); [address] [place] [address] Weight gain [phone] Allergies No Known Allergiesdocumented as of this encounter (statuses as of 04/30/2019) Medications Medication Sig Dispensed Refills Start Date End Date Status ALBUTEROL SULFATE Inhale. 0 Active HFA INHALE sod Use 1 Bottle 1 Each 0 12/20/2018 04/30/2019 Discontinued [id number] in each z bottle (NEILMED nostril 2 [...] This exam may be done by a wood calker, family healthcare provider, nurse practitioner, nurse candle cutter, or specially trained nurse. Yearly breast exams [...] Guidelines for having clinical breast exams The [place] [employer]st[employer]ians and Gynecologists recommends that [...] is best for you. Date Last Reviewed: 03/27/201719990461-5942 [email or web address] [address] [place] [address]. All rights reserved. This information is not [...] breast self-examination (BSE). These experts include the [place] [employer], the U.S. Preventive Services Task Force, and the [place] [employer] of Obstetricians and Gynecologists. Some experts [...] they are not cancer. Date Last Reviewed: 03/27/201719994880-4202 [email or web address] [address] [place] [address]. All rights reserved. This information is not [...] does not recommend CBE. Date Last Reviewed: 05/27/201719999975-5493 [employer]. [address] [place] [address]92. All rights reserved. This information is not [...] to protect your future. Date Last Reviewed: 07/27/201619995062-8567 [employer]. [address] [place] [address]. All rights reserved. This information is not [...] memory and body movement. Date Last Reviewed: 06/27/201619996104-8752 [employer]. [address] [place] [address]. All rights reserved. This information is not [...] cinnamon, pepper, and clair. Date Last Reviewed: 05/27/201719998349-0901 [employer]. [address] [place] [address]. All rights reserved. This information is not [...] the food you eat. Date Last Reviewed: 03/27/201719990599-2229 [email or web address] [address] [place] [address], [place] [address]. All rights reserved. This information is not [...] file Gets together: Not on file Attends mormon service: Not on file Active member of [...] Concern Not on file Social History Narrative Hinduism preference is Jewish. Patient lives with partner. Social History Substance [...] Multiple tattoos present. Genitourinary Comments: Chaperoned by: Erfen Huang MA Breast: Right breast exhibits no [...] - GLYCOSYLATED HEMOGLOBIN (A1C) - LIPID PANEL (96839)(TOTAL CHOLESTEROL, TRIGLYCERIDES, HDL) 3. Irregular menses Discussed [...] Desired BCM: none 3) LMP:04/08/2019 4) Last [place]:04/27/2019 5) Last Pap:2014 Results:negative per patient 6) Tdap in last 10 years?yes per patient in 2011 HPV?completed in high school per patient 7) C/O irregular menses 8) Patient denies history of physical, emotional, or sexual abuse. Patient states she currently feels safe at home. documented in this encounter Plan of Treatment Date Type Specialty Care Team Description 05/05/2019 Mortgage Loan Originator Visit [facility], [facility] Name Type Priority Associated Diagnoses Date/Time PAP [...] than or equal to 50 LIPID PANEL (85296)(TOTAL LAB Routine Morbid obesity with body Ordered: [...] Effective Phone Address Type / Group Dates [facility] xxxxxxxxx 2019-Prese [phone] Medicaid WOMEN nt [address] [place] [address] documented as of this encounter Advance Directives Name Relationship Healthcare Agent Communication Relationship Yahir Michaels Significant Other Primary healthcare agent
--- NOTE | 2019-11-11 13:52 | RAD REPORT ---
EXAM DESCRIPTION: RAD - Chest Pa And Lat (2 Views) - 11/11/2019 1:43 pm CLINICAL HISTORY: COUGH Chest pain. COMPARISON: Chest Pa And Lat (2 Views) dated 12/18/2018 FINDINGS: The lungs are clear. The heart is normal in size. No displaced fractures. IMPRESSION: No acute or concerning finding suspected.
--- NOTE | 2019-11-11 13:57 | ER ---
Nurse's Notes [facility] Name: Tonya Barrera Age: 24 yrs Sex: Female : 1995 Arrival Date: 11/11/2019 Time: 11:29 Bed 16 Private MD: Diagnosis: Allergic rhinitis, unspecified;Cough Presentation: 11/10 11:32 Chief complaint: Patient states: cough since last week, worse at night. Visited another [facility] hospital, strep and flu swabs were negative. Was on steroids but the cough hasn't been better. Denies fever. Coronavirus screen: The patient has NOT traveled to a country currently being monitored by the [facility] within the last 14 days. The patient has NOT had contact with any known and/or suspected case of coronavirus. Ebola Screen: Patient negative for fever greater than or equal to 101.5 degrees Fahrenheit, and additional compatible Ebola Virus Disease symptoms Patient denies exposure to infectious person. Patient denies travel to an Ebola-affected area in the 21 days before illness onset. No symptoms or risks identified at this time. Initial Sepsis Screen: Does the patient meet any 2 criteria? No. Patient's initial sepsis screen is negative. Does the patient have a suspected source of infection? No. Patient's initial sepsis screen is negative. Risk Assessment: Do you want to hurt yourself or someone else? Patient reports no desire to harm self or others. Onset of symptoms was November 11, 2019. 11:32 Method Of Arrival: Ambulatory [facility] 11:32 Acuity: TEMO 3 ca1 Historical: - Allergies: 11:35 No Known Allergies; ca1 - Home Meds: 11:35 None [Active]; ca1 - PMHx: 11:35 Asthma; ca1 - PSHx: 11:35 Cholecystectomy; ca1 - Immunization history:: Adult Immunizations up to date. - Social history:: Smoking status: Patient/guardian denies using. Screenin:25 Abuse screen: Denies threats or abuse. Nutritional screening: No deficits noted. rb1 Tuberculosis screening: No symptoms or risk factors identified. Fall Risk None identified. Assessment: 13:25 General: Appears in no apparent distress. comfortable, Behavior is calm, cooperative, rb1 Denies fever. Pain: Complains of pain in ribs and chest Pain currently is 4 out of 10 on a pain scale. Pain began x 1 week Aggravated by coughing. Neuro: Level of Consciousness is awake, alert, obeys commands, Oriented to person, place, time, situation. Cardiovascular: Capillary refill < 3 seconds is brisk in bilateral fingers. Respiratory: Airway is patent Respiratory effort is even, unlabored, Respiratory pattern is regular, symmetrical. GI: Reports diarrhea. : No signs and/or symptoms were reported regarding the genitourinary system. EENT: Reports nasal congestion. Derm: Skin is pink, warm \T\ dry. 14:25 Reassessment: Patient appears in no apparent distress at this time. No changes from rb1 previously documented assessment. Vital Signs: 11:32 BP 128 / 91; Pulse 82; Resp 16 S; Temp 98.2(TE); Pulse Ox 99% on R/A; Weight 129.27 kg ca1 (R); Height 5 ft. 2 in. (157.48 cm) (R); Pain 4/10; 14:20 BP 125 / 78; Pulse 71; Resp 17; Pulse Ox 99% on R/A; rb1 11:32 Body Mass Index 52.13 (129.27 kg, 157.48 cm) ca1 ED Course: 11:29 Patient arrived in ED. rg4 11:35 Triage completed. ca1 11:35 Arm band placed on right wrist. ca1 12:57 Yara Fields FNP-C [facility] kb 12:57 Demar Anguiano MD is Attending Physician. kb 13:25 Patient has correct armband on for positive identification. Bed in low position. Call rb1 light in reach. Side rails up X 1. Pulse ox on. NIBP on. 13:29 Avelina Arboleda, RN is Primary Nurse. rb1 13:48 XRAY Chest Pa And Lat (2 Views) In Process Unspecified. EDMS 14:56 No provider procedures requiring assistance completed. Patient did not have IV access rb1 during this emergency room visit. Administered Medications: No medications were administered Outcome: 13:56 Discharge ordered by . kb 14:56 Patient left the ED. rb1 14:56 Discharged to home ambulatory, with significant other. rb1 14:56 Condition: stable 14:56 Discharge instructions given to patient, Instructed on discharge instructions, follow up and referral plans. medication usage, Demonstrated understanding of instructions, follow-up care, medications, Prescriptions given X 1. Signatures: Dispatcher [employer] EDMS Yara Fields FNP-C HOSE TESTER-Ckb Avelina Arboleda, RN RN rb1 Sam, Ilana rg4 Catalina Pate, RN RN ca1
--- NOTE | 2019-11-11 13:57 | EDPHYS ---
Physician Documentation [facility] Name: Tonya Barrera Age: 24 yrs Sex: Female : 1995 Arrival Date: 11/11/2019 Time: 11:29 Bed 16 Private MD: ED Physician Demar Anguiano HPI: 11/10 14:38 This 24 yrs old Female presents to ER via Ambulatory with complaints of Cough. kb 14:38 The patient or guardian reports cough, that is intermittent, described as moderate, kb with no sputum. Onset: The symptoms/episode began/occurred 2 week(s) ago. Severity of symptoms: At their worst the symptoms were moderate, in the emergency department the symptoms are unchanged. Modifying factors: The symptoms are alleviated by nothing, the symptoms are aggravated by laying flat. Associated signs and symptoms: The patient has no apparent associated signs or symptoms. The patient has experienced similar episodes in the past. The patient has not recently seen a physician. Pt reports cough for 2 weeks. States she went to another hospital and was negative for flu and strep, completed a course of steroids without relief. States cough is worse at night when laying flat. Historical: - Allergies: 11:35 No Known Allergies; ca1 - Home Meds: 11:35 None [Active]; ca1 - PMHx: 11:35 Asthma; ca1 - PSHx: 11:35 Cholecystectomy; ca1 - Immunization history:: Adult Immunizations up to date. - Social history:: Smoking status: Patient/guardian denies using. ROS: 14:37 Constitutional: Negative for fever, chills, and weight loss, ENT: Negative for injury, kb pain, and discharge, Neck: Negative for injury, pain, and swelling, Cardiovascular: Negative for chest pain, palpitations, and edema, Abdomen/GI: Negative for abdominal pain, nausea, vomiting, diarrhea, and constipation, Back: Negative for injury and pain, MS/Extremity: Negative for injury and deformity, Skin: Negative for injury, rash, and discoloration, Neuro: Negative for headache, weakness, numbness, tingling, and seizure. 14:37 Respiratory: Positive for cough, Negative for dyspnea on exertion, hemoptysis, orthopnea, pleurisy, shortness of breath, sputum production, wheezing. Exam: 14:37 Constitutional: This is a well developed, well nourished patient who is awake, alert, kb and in no acute distress. Head/Face: Normocephalic, atraumatic. ENT: Nares patent. No nasal discharge, no septal abnormalities noted. Tympanic membranes are normal and external auditory canals are clear. Oropharynx with no redness, swelling, or masses, exudates, or evidence of obstruction, uvula midline. Mucous membranes moist. Neck: Trachea midline, no thyromegaly or masses palpated, and no cervical lymphadenopathy. Supple, full range of motion without nuchal rigidity, or vertebral point tenderness. No Meningismus. Chest/axilla: Normal chest wall appearance and motion. Nontender with no deformity. No lesions are appreciated. Cardiovascular: Regular rate and rhythm with a normal S1 and S2. No gallops, murmurs, or rubs. Normal PMI, no JVD. No pulse deficits. Respiratory: Lungs have equal breath sounds bilaterally, clear to auscultation and percussion. No rales, rhonchi or wheezes noted. No increased work of breathing, no retractions or nasal flaring. Abdomen/GI: Soft, non-tender, with normal bowel sounds. No distension or tympany. No guarding or rebound. No evidence of tenderness throughout. Skin: Warm, dry with normal turgor. Normal color with no rashes, no lesions, and no evidence of cellulitis. MS/ Extremity: Pulses equal, no cyanosis. Neurovascular intact. Full, normal range of motion. Neuro: Awake and alert, GCS 15, oriented to person, place, time, and situation. Cranial nerves II-XII grossly intact. Motor strength 5/5 in all extremities. Sensory grossly intact. Cerebellar exam normal. Normal gait. Vital Signs: 11:32 BP 128 / 91; Pulse 82; Resp 16 S; Temp 98.2(TE); Pulse Ox 99% on R/A; Weight 129.27 kg ca1 (R); Height 5 ft. 2 in. (157.48 cm) (R); Pain 4/10; 14:20 BP 125 / 78; Pulse 71; Resp 17; Pulse Ox 99% on R/A; rb1 11:32 Body Mass Index 52.13 (129.27 kg, 157.48 cm) ca1 MDM: 13:25 Patient medically screened. kb 14:36 Data reviewed: vital signs, nurses notes. Data interpreted: Pulse oximetry: on room air kb is 99 %. Interpretation: normal. Counseling: I had a detailed discussion with the patient and/or guardian regarding: the historical points, exam findings, and any diagnostic results supporting the discharge/admit diagnosis, radiology results, the need for outpatient follow up, a family practitioner, to return to the emergency department if symptoms worsen or persist or if there are any questions or concerns that arise at home. 11/10 12:33 Order name: XRAY Chest Pa And Lat (2 Views); Complete Time: 14:05 ca1 Administered Medications: No medications were administered Disposition: 15:28 Co-signature as Attending Physician, Demar Anguiano MD. rn Disposition: 11/11/19 13:56 Discharged to Home. Impression: Allergic rhinitis, unspecified, Cough. - Condition is Stable. - Discharge Instructions: Cough, Adult, Mudy-yn-Atjk, Nasal Allergies, Jnej-ok-Iefc. - Prescriptions for Tessalon Perles 100 mg Oral Capsule - take 1 capsule by ORAL route every 8 hours As needed; 15 capsule. - Medication Reconciliation Form, Thank You Letter, Antibiotic Education, Prescription Opioid Use form. - Follow up: Emergency Department; When: As needed; Reason: Worsening of condition. Follow up: Private Physician; When: 2 - 3 days; Reason: Recheck today's complaints, Continuance of care, Re-evaluation by your physician. Signatures: Dispatcher [employer] EDUT Donnie Yara, COMPENSATION AND HRIS ANALYST-C COMPENSATION AND HRIS ANALYST-Ckb Demar Anguiano MD MD rn Barber, Rebecca, RN RN rb1 Catalina Pate RN RN ca1 Corrections: (The following items were deleted from the chart) 14:56 13:56 11/11/2019 13:56 Discharged to Home. Impression: Allergic rhinitis, unspecified; rb1 Cough. Condition is Stable. Forms are Medication Reconciliation Form, Thank You Letter, Antibiotic Education, Prescription Opioid Use. Follow up: Emergency Department; When: As needed; Reason: Worsening of condition. Follow up: Private Physician; When: 2 - 3 days; Reason: Recheck today's complaints, Continuance of care, Re-evaluation by your physician. kb
[2019-11-11 15:47] VITALS: BP 128/91; TEMP 98.2; O2SAT 99
== END 2019-11-11 14:56 | disposition home or self-care (01) ==
LOC: ER 11:27
DX: R05 Cough (principal); J30.9 Allergic rhinitis, unspecified
CPT/HCPCS: 71046; 99283

== ENCOUNTER 2022-02-28 10:44 | Emergency (ER) | payer SELFPAY ==
[2022-02-28] MEDS ORDERED: ONDANSETRON 4 MG (ODT) TAB ONE (11:13)
--- NOTE | 2022-02-28 12:48 | EDPHYS ---
Physician Documentation [facility] Name: Tonya Barrera Age: 27 yrs Sex: Female : 1995 Arrival Date: 02/28/2022 Time: 10:48 Bed 12 Private MD: ED Physician Greyson Rushing MANAGER ER: 02/28 10:53 LMP 02/20/2022 ld1 Historical: - Allergies: 10:53 No Known Allergies; ld1 - Home Meds: 10:53 None [Active]; ld1 - PMHx: 10:53 Asthma; Asthma; ld1 - PSHx: 10:53 Cholecystectomy; Tonsillectomy; ld1 - Immunization history:: Adult Immunizations up to date, Client reports having NOT received the Covid vaccine. - Social history:: Smoking status: Patient denies any tobacco usage or history of. Patient uses alcohol, but reports only rare drinking. Vital Signs: 10:53 BP 138 / 87; Pulse 92; Resp 18; Temp 98.2(TE); Pulse Ox 99% on R/A; Weight 149.69 kg; ld1 Height 5 ft. 4 in. (162.56 cm); Pain 0/10; 10:53 Body Mass Index 56.64 (149.69 kg, 162.56 cm) ld1 MDM: 10:52 Patient medically screened. kb 02/28 10:56 Order name: COVID-19 SARS RT PCR (Document "Date of Onset" if Symptomatic); Complete kb Time: 12:47 02/28 10:56 Order name: Flu kb Administered Medications: 11:06 Drug: Zofran (Ondansetron) 4 mg Route: PO; ld1 Disposition Summary: 02/28/22 12:47 Discharge Ordered Location: Home kb Condition: Stable kb Diagnosis - Coronavirus infection, unspecified kb Followup: kb - With: Emergency Department - When: As needed - Reason: Worsening of condition Followup: kb - With: Private Physician - When: 2 - 3 days - Reason: Recheck today's complaints, Continuance of care, Re-evaluation by your physician Discharge Instructions: - Discharge Summary Sheet kb - Viral Respiratory Infection, Mzab-Bd-Hlsq kb - COVID-19 kb Forms: - Medication Reconciliation Form kb - Thank You Letter kb - Antibiotic Education kb - Prescription Opioid Use kb Signatures: Dispatcher [employer] EDMS Yara Fields, CARPET LOOM FIXER-C CARPET LOOM FIXER-Ckb Tonya Lomeli, RN RN ld1 Corrections: (The following items were deleted from the chart) 10:58 10:57 SARS-COV-2 RT PCR+MOL.LAB.[place] ordered. EDMS EDMS 10:58 10:57 Influenza Screen (A \\T\\ B)+BA.LAB.BRTammie ordered. EDMS EDMS
--- NOTE | 2022-02-28 12:48 | ER ---
Nurse's Notes [facility] Name: Tonya Barrera Age: 27 yrs Sex: Female : 1995 Arrival Date: 02/28/2022 Time: 10:48 Bed 12 Private MD: Diagnosis: Coronavirus infection, unspecified Presentation: 02/28 10:53 Chief complaint: Patient states: cough, fever, nausea X 3 days. COVID exposure. ld1 Coronavirus screen: Client presents with at least one sign or symptom that may indicate coronavirus-19. Standard/surgical mask placed on the client. Ebola Screen: No symptoms or risks identified at this time. Initial Sepsis Screen: Does the patient meet any 2 criteria? No. Patient's initial sepsis screen is negative. Does the patient have a suspected source of infection? No. Patient's initial sepsis screen is negative. Risk Assessment: Do you want to hurt yourself or someone else? Patient reports no desire to harm self or others. Onset of symptoms was February 28, 2022 at 10:53. 10:53 Method Of Arrival: Ambulatory ld1 10:53 Acuity: TEMO 4 ld1 Triage Assessment: 10:53 General: Appears in no apparent distress. comfortable, Behavior is calm, cooperative, ld1 appropriate for age. Pain: Denies pain. EENT: No signs and/or symptoms were reported regarding the EENT system. Neuro: Level of Consciousness is awake, alert, obeys commands, Oriented to person, place, time, situation. Cardiovascular: Capillary refill < 3 seconds Patient's skin is warm and dry. Respiratory: Airway is patent Respiratory effort is even, unlabored. GI: Abdomen is round obese. : No signs and/or symptoms were reported regarding the genitourinary system. Derm: No signs and/or symptoms reported regarding the dermatologic system. Musculoskeletal: No signs and/or symptoms reported regarding the musculoskeletal system. PIANO TECHNICIAN: 10:53 LMP 02/20/2022 ld1 Historical: - Allergies: 10:53 No Known Allergies; ld1 - Home Meds: 10:53 None [Active]; ld1 - PMHx: 10:53 Asthma; Asthma; ld1 - PSHx: 10:53 Cholecystectomy; Tonsillectomy; ld1 - Immunization history:: Adult Immunizations up to date, Client reports having NOT received the Covid vaccine. - Social history:: Smoking status: Patient denies any tobacco usage or history of. Patient uses alcohol, but reports only rare drinking. Screenin:26 Abuse screen: Denies threats or abuse. Denies injuries from another. Nutritional ld1 screening: No deficits noted. Tuberculosis screening: No symptoms or risk factors identified. Fall Risk None identified. Assessment: 11:26 Reassessment: see triage assessment. ld1 Vital Signs: 10:53 BP 138 / 87; Pulse 92; Resp 18; Temp 98.2(TE); Pulse Ox 99% on R/A; Weight 149.69 kg; ld1 Height 5 ft. 4 in. (162.56 cm); Pain 0/10; 10:53 Body Mass Index 56.64 (149.69 kg, 162.56 cm) ld1 ED Course: 10:48 Patient arrived in ED. as 10:50 Greyson Rushing DO is Attending Physician. ms3 10:50 Yara Fields FNP-C is [facility]. sascha 10:53 Triage completed. ld1 11:03 Flu Sent. ld1 11:03 COVID-19 SARS RT PCR (Document "Date of Onset" if Symptomatic) Sent. ld1 11:25 Tonya Lomeli, NEIDA is Primary Nurse. ld1 11:26 No provider procedures requiring assistance completed. Patient did not have IV access ld1 during this emergency room visit. 11:26 Patient has correct armband on for positive identification. Placed in gown. Bed in low ld1 position. Call light in reach. Side rails up X2. Pulse ox on. NIBP on. Door closed. Noise minimized. Warm blanket given. 13:00 Arm band placed on left wrist. ld1 Administered Medications: 11:06 Drug: Zofran (Ondansetron) 4 mg Route: PO; ld1 Medication: 11:26 VIS not applicable for this client. ld1 Outcome: 12:47 Discharge ordered by MD. caicedo 13:00 Discharged to home ambulatory, with family. ld1 13:00 Condition: stable 13:00 Discharge instructions given to patient, Instructed on discharge instructions, follow up and referral plans. Demonstrated understanding of instructions, follow-up care. 13:00 Patient left the ED. ld1 Signatures: Yara Fields FNP-C FNP-Ckb Martinez, Amelia as Greyson Rushing DO DO ms3 Tonya Lomeli, RN RN ld1
[2022-02-28 13:06] VITALS: BP 138/87; TEMP 98.2; O2SAT 99
== END 2022-02-28 13:00 | disposition home or self-care (01) ==
LOC: ER 10:44
DX: U07.1 COVID-19 (principal)
CPT/HCPCS: 87804; Q0162; U0003

== ENCOUNTER 2022-10-24 00:50 | Emergency (ER) | payer SELFPAY ==
--- OUTSIDE RECORDS SUMMARY | 2022-10-24 00:53 | XMS REPORT | Continuity of Care Document ---
:1995 Author Organization [facility] t Address [address] [place] [id number] Care Team Providers Name Role Phone Unavailable Unavailable Unavailable Problems This patient has no known problems. Allergies, Adverse Reactions, Alerts Allergy Allergy Status Severity Reaction(s) Onset Inactive Treating Comm ents Source Name Type Date Date Clinician NO KNOWN Drug Active [facility] ALLERGIE Class [facility] Medications This patient has no known medications. Procedures This patient has no known procedures. Encounters Start End Encounter Admission Attending Care Care Encounter Source Date/Time Date/Time Type Type Clinicians Facility Department ID 2021-06-23 Emergency [facility] [id number] [facility] 12:48:07 [facility] Results This patient has no known results.
[2022-10-24] MEDS ORDERED: LIDOCAINE HCL JELLY 2% 6 ML SYRINGE TOP ONE ×2 (03:09→03:13)
--- NOTE | 2022-10-24 03:34 | ER ---
Nurse's Notes [facility] Name: Tonya Barrera Age: 27 yrs Sex: Female : 1995 Arrival Date: 10/24/2022 Time: 00:54 Bed 16 Private MD: Diagnosis: Foreign body in vulva and vagina-tampon Presentation: 10/24 01:05 Chief complaint: Patient states: I put a tampon in around 4:30 this afternoon. I don't kd3 usually use tampons because the same thing happened to me when i was younger but my period has been real heavy. now i cant find the string and so i cant get it out. Coronavirus screen: Vaccine status: Patient reports being unvaccinated. Ebola Screen: No symptoms or risks identified at this time. Initial Sepsis Screen: Does the patient meet any 2 criteria? No. Patient's initial sepsis screen is negative. Does the patient have a suspected source of infection? No. Patient's initial sepsis screen is negative. Risk Assessment: Do you want to hurt yourself or someone else? Patient reports no desire to harm self or others. Onset of symptoms was October 24, 2022. 01:05 Method Of Arrival: Ambulatory kd3 01:05 Acuity: TEMO 4 kd3 Triage Assessment: 01:08 General: Appears in no apparent distress. Behavior is calm, cooperative. Pain: Denies kd3 pain. 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 - Social history:: Smoking status: Patient denies any tobacco usage or history of. Screenin:23 [facility] ED Fall Risk Assessment (Adult) History of falling in the last 3 months, aa9 including since admission No falls in past 3 months (0 pts) Confusion or Disorientation No (0 pts) Intoxicated or Sedated No (0 pts) Impaired Gait No (0 pts) Mobility Assist Device Used No (0 pt) Altered Elimination No (0 pt) Score/Fall Risk Level 0 - 2 = Low Risk Oriented to surroundings, Educated pt \T\ family on fall prevention, incl call for assistance when getting out of bed. Abuse screen: Denies threats or abuse. Denies injuries from another. Nutritional screening: No deficits noted. Tuberculosis screening: No symptoms or risk factors identified. Assessment: 01:00 Reassessment: Patient appears in no apparent distress at this time. Patient and/or aa9 family updated on plan of care and expected duration. Pain level reassessed. Patient is alert, oriented x 3, equal unlabored respirations, skin warm/dry/pink. 01:00 Respiratory: Airway is patent Respiratory effort is even, unlabored. aa9 01:50 Reassessment: Patient appears in no apparent distress at this time. chaperoned Yudelka ashley for pelvic exam. 03:24 Reassessment: Patient appears in no apparent distress at this time. Patient and/or aa9 family updated on plan of care and expected duration. Pain level reassessed. Patient is alert, oriented x 3, equal unlabored respirations, skin warm/dry/pink. chaperoned Yudelka NICHOLS for pelvic exam. 03:46 Reassessment: Patient appears in no apparent distress at this time. Patient and/or aa9 family updated on plan of care and expected duration. Pain level reassessed. Patient is alert, oriented x 3, equal unlabored respirations, skin warm/dry/pink. Respiratory: Airway is patent Respiratory effort is even, unlabored. Vital Signs: 01:00 BP 123 / 63; Pulse 82; Resp 16 S; Pulse Ox 97% on R/A; aa9 01:05 BP 126 / 83; Pulse 92; Resp 19; Temp 98.5(O); Pulse Ox 99% on R/A; Weight 149.69 kg; kd3 Height 5 ft. 4 in. (162.56 cm); 02:00 BP 113 / 77; Pulse 86; Pulse Ox 96% on R/A; aa9 03:00 BP 113 / 80; Pulse 77; Resp 16 S; Pulse Ox 99% on R/A; aa9 01:05 Body Mass Index 56.64 (149.69 kg, 162.56 cm) kd3 ED Course: 00:54 Patient arrived in ED. jj6 01:01 Davin Jha PA is PHCP. cp 01:01 Haleigh Santamaria MD is Attending Physician. cp 01:08 Triage completed. kd3 01:08 Arm band placed on right wrist. kd3 01:10 Ingrid Miles, RN is Primary Nurse. aa9 02:27 Transvaginal Study (probe) In Process Unspecified. EDMS 03:23 Patient has correct armband on for positive identification. Placed in gown. Call light aa9 in reach. Side rails up X2. Warm blanket given. 03:46 Assist provider with pelvic exam: Set up pelvic tray. Performed by Davin Jha PA aa9 Patient tolerated well. Patient did not have IV access during this emergency room visit. Administered Medications: 03:46 Drug: Rocephin (cefTRIAXone) 1 grams Route: IM; Site: left gluteus; aa9 03:46 Follow up: Response: No adverse reaction aa9 Medication: 03:23 VIS not applicable for this client. aa9 Outcome: 03:33 Discharge ordered by . cp 03:46 Discharged to home ambulatory. aa9 03:46 Condition: stable 03:46 Discharge instructions given to patient, Instructed on discharge instructions, follow up and referral plans. medication usage, Demonstrated understanding of instructions, follow-up care, medications, Prescriptions given X 1. 03:48 Patient left the ED. aa9 Signatures: Dispatcher [employer] EDTN Davin Jha PA PA cp Jeffries, Jennifer jj6 Inocencia Faulkner RN RN kd3 Ingrid Miles RN RN aa9 Corrections: (The following items were deleted from the chart) 01:09 01:08 PMHx: Asthma; kd3 kd3
--- NOTE | 2022-10-24 03:34 | EDPHYS ---
Physician Documentation [facility] Name: Tonya Barrera Age: 27 yrs Sex: Female : 1995 Arrival Date: 10/24/2022 Time: 00:54 Bed 16 Private MD: ED Physician Haleigh Santamaria HPI: 10/24 01:30 This 27 yrs old Female presents to ER via Ambulatory with complaints of cp Foreign body In Vagina. 01:30 The patient presents with vaginal foreign body. Onset: The symptoms/episode cp began/occurred yesterday. 01:30 Associated signs and symptoms: The patient has no apparent associated signs or symptoms.cp 01:30 Severity of symptoms: in the emergency department the symptoms are unchanged, despite cp home interventions. 01:30 Patient reports inserting tampon this afternoon for regular menstrual bleeding and cp being unable to remove it. 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 - Social history:: Smoking status: Patient denies any tobacco usage or history of. ROS: 01:33 Constitutional: Negative for body aches, chills, fever, poor PO intake. cp 01:33 Abdomen/GI: Negative for abdominal pain, vomiting, diarrhea, constipation. cp 01:33 : Positive for vaginal bleeding, vaginal foreign body, Negative for urinary symptoms. 01:33 Neuro: Negative for altered mental status, headache, weakness. Exam: 01:35 Constitutional: The patient appears in no acute distress, alert, awake, non-toxic, well cp developed, well nourished, obese. 01:35 Head/Face: Normocephalic, atraumatic. cp 01:35 Eyes: Periorbital structures: appear normal, Conjunctiva: normal, no exudate, no injection, Sclera: no appreciated abnormality, Lids and lashes: appear normal, bilaterally. 01:35 ENT: External ear(s): are unremarkable, Nose: is normal, Posterior pharynx: Airway: no evidence of obstruction, patent. 01:35 Chest/axilla: Inspection: normal. 01:35 Cardiovascular: Rate: normal, Rhythm: regular. 01:35 Respiratory: the patient does not display signs of respiratory distress, Respirations: normal, no use of accessory muscles, no retractions. 01:35 Abdomen/GI: Inspection: obese Palpation: abdomen is soft and non-tender, in all quadrants. 03:00 : Pelvic Exam: External exam: is normal, Speculum exam: mild bleeding, no cervicitis, cp os that is closed, no foreign body visible in vaginal vault, bimanual exam reveals no cervical motion tenderness, discharge, bloody, the nurse was present for the exam. Vital Signs: 01:00 BP 123 / 63; Pulse 82; Resp 16 S; Pulse Ox 97% on R/A; aa9 01:05 BP 126 / 83; Pulse 92; Resp 19; Temp 98.5(O); Pulse Ox 99% on R/A; Weight 149.69 kg; kd3 Height 5 ft. 4 in. (162.56 cm); 02:00 BP 113 / 77; Pulse 86; Pulse Ox 96% on R/A; aa9 03:00 BP 113 / 80; Pulse 77; Resp 16 S; Pulse Ox 99% on R/A; aa9 01:05 Body Mass Index 56.64 (149.69 kg, 162.56 cm) kd3 MDM: 01:01 Patient medically screened. cp 03:25 Data reviewed: vital signs, nurses notes. Consideration of Admission/Observation cp Escalation of care including admission/observation considered. After multiple attempts to retrieve vaginal tampon, discussed transfer to facility with gynecological services vs discharge and patient driving to [facility] for evaluation. Patient is able to make informed decisions and will drive self to [facility] for reevaluation. Test considered but Not performed: Labs: cbc, bmp. CT: abdomen/pelvis. Counseling: I had a detailed discussion with the patient and/or guardian regarding: the historical points, exam findings, and any diagnostic results supporting the discharge/admit diagnosis. Response to treatment: unresolved, and as a result, I will discharge patient. Special discussion: risk of not retrieving tampon could lead to infection, sepsis and/or . 10/24 01:52 Order name: Transvaginal Study (probe) cp 10/24 01:06 Order name: Pelvic Exam Setup; Complete Time: 01:29 cp Administered Medications: 03:46 Drug: Rocephin (cefTRIAXone) 1 grams Route: IM; Site: left gluteus; aa9 03:46 Follow up: Response: No adverse reaction aa9 Disposition Summary: 10/24/22 03:33 Discharge Ordered Location: Other cp Problem: new cp Symptoms: are unchanged cp Condition: Stable cp Diagnosis - Foreign body in vulva and vagina - tampon cp Followup: cp - With: Emergency Department - When: Upon discharge from the Emergency Department - Reason: Recheck today's complaints Discharge Instructions: - Discharge Summary Sheet cp - Vaginal Foreign Body cp Forms: - Medication Reconciliation Form cp - Thank You Letter cp - Antibiotic Education cp - Prescription Opioid Use cp Prescriptions: - Augmentin 875-125 mg Oral Tablet - take 1 tablet by ORAL route every 12 hours for 10 days; 20 tablet; Refills: 0, cp Product Selection Permitted Signatures: Dispatcher [employer] EDMS Davin Jha PA PA cp Doucette, Kyli, RN RN kd3 Ingrid Miles RN RN aa9 Corrections: (The following items were deleted from the chart) 01:09 01:08 PMHx: Asthma; kd3 kd3 03:32 01:35 : Pelvic Exam: External exam: is normal, Speculum exam: mild bleeding, no cp cervicitis, os that is closed, no foreign body visible in vaginal vault, bimanual exam reveals no cervical motion tenderness, discharge, bloody, the nurse was present for the exam, cp
[2022-10-24] MEDS ORDERED: CEFTRIAXONE 1000 MG/VIAL ONE (03:41)
[2022-10-24] MEDS ORDERED: LIDOCAINE 1% MPF 2 ML AMPULE ONE (03:42)
[2022-10-24 03:55] VITALS: TEMP 98.5
[2022-10-24 03:57] VITALS: BP 113/80; O2SAT 99
--- NOTE | 2022-10-24 13:28 | RAD REPORT ---
EXAM DESCRIPTION: US - Transvaginal Study Probe - 10/24/2022 2:25 am CLINICAL HISTORY: 27 years Female foreign body, LMP: Not provided TECHNIQUE: Ultrasound imaging of the pelvis was performed transabdominally and endovaginally on 10/24 at 8: 28 AM. COMPARISON: None FINDINGS: Limited sonographic imaging of the pelvis reveals the uterus to be grossly normal in chiara major. There is an area of increased echogenicity in the region of the cervix possibly corresponding to a tampon in the vagina. No additional focal abnormalities are identified on this limited examinati on of the pelvis. IMPRESSION: 1. Area of increased echogenicity in the region of the cervix possibly corresponding t o a tampon in the vagina. 2. Otherwise, grossly unremarkable limited pelvic ultrasound. Electronically signed by: Johana Orr DO 10/24/2022 2:42 AM RAVELER Due to temporary technical issues with the PACS/Fluency reporting system, reports are being signed by the in house radiologists without review as a courtesy to insure prompt reporting. The interpreting radiologist is fully responsible for the content of the report.
== END 2022-10-24 03:48 | disposition home or self-care (01) ==
LOC: ER 00:50
DX: T19.2XXA Foreign body in vulva and vagina, initial encounter (principal)
CPT/HCPCS: 76830; 96372; 99284

== ENCOUNTER 2023-07-21 16:14 | Emergency (ER) | payer SELFPAY ==
--- OUTSIDE RECORDS SUMMARY | 2023-07-21 16:17 | XMS REPORT | Continuity of Care Document ---
:1995 Author Organization [facility] t Address [address] [facility] [address] [place] [address] Care Team Providers Name Role Phone Pcp, Patient Does Not Have A Primary Care Physician +[id number] BIBIANA EVANS Attending Clinician Unavailable Bibiana Evans DO Attending Clinician Faculty, Pulmonary Attending Clinician Unavailable FAUSTINA MOJICA Attending Clinician Unavailable Faustina Mojica MD Attending Clinician MELANIE FELICIANO Attending Clinician Unavailable Melanie Leger Attending Clinician TRISTA HUANG Attending Clinician Unavailable Provider, Ang-Rmchp Temp Attending Clinician Unavailable Trista Huang CNM Attending Clinician Doctor Unassigned, [place] Attending Clinician Unavailable FAUSTINA MOJICA Admitting Clinician Unavailable Payers Payer Name Policy Type Policy Number Effective Date Expiration Date S ource Problems Condition Condition Condition Status Onset Resolution Last Treating Co mments Source Name Details Category Date Date Treatment Clinician Date Morbid Morbid Disease Active Univers obesity obesity 04-30 [place] mass index mass index 00 Me dical (BMI) (BMI) Branch greater greater than or than or equal to equal to 50 50 Irregular Irregular Disease Active Uni vers menses menses 04-30 ity of 00:00: [place] 00 Medical Branch Weight Weight Disease Active Univers gain gain 04-30 ity of 00:00: [place] [facility] Acanthosis Acanthosis Disease Active U nivers nigricans nigricans 04-30 ity of 00:00: [address] Allergies, Adverse Reactions, Alerts Allergy Allergy Status Severity Reaction(s) Onset Inactive Treating Comm ents Source Name Type Date Date Clinician NO KNOWN Drug Active Univers ALLERGIE Class ity of S [facility] Social History Social Habit Start Date Stop Date Quantity Comments Source Sexual orientation Univer sity of [facility] History of tobacco Cigarette Smoker University of use [facility] Alcohol intake 2023-07-20 2023-07-20 Current drinker Unive rsity of 00:00:00 00:00:00 of alcohol [facility] (finding) [place] Exposure to 2022-10-14 2022-10-24 Not sure [facility] SARS-CoV-2 (event) 00:00:00 12:20:00 [facility] Tobacco use and 2022-10-24 2022-10-24 Smokeless tobacco Un iversity of exposure 00:00:00 00:00:00 non-user [facility] History of Social 2022-10-24 2022-10-24 Univers ity of function 00:00:00 00:00:00 [facility] Alcohol Comment 2019-04-30 2019-04-30 occasional Universit y of 00:00:00 00:00:00 [facility] Sex Ass[birth year] At [birth year] Universit y of 00:00:00 00:00:00 [facility] Smoking Status Start Date Stop Date Source Ex-smoker 2022-10-24 00:00:00 2022-10-24 00:00:00 Universi ty [facility] Medications Ordered Filled Start Stop Current Ordering Indication Dosage Frequency Signature Comments Components Source Medication Medication Date Date Medication? Clinician (SIG) Name Name acetaminoph 2022-08 No 1000mg 1,000 mg, Univers en 09-19 Oral, ity of (TYLENOL) 18:00: 18:21 ONCE, 1 [place] tablet [place] :00 dose, On Medical 1,000 mg Fri Branch 07/20/23 at 1200, ALMA benzonatate 2022-08 Yes [id number] 100mg Take 1 Univers 100 mg 24 capsule by ity of capsule 00:00: mouth 3 [place] 00 (three) Medical times Branch daily as needed for Cough. predniSONE 2022-08 No 40mg 40 mg, Univ ers (DELTASONE) 0-24 10-24 Oral, ity of tablet 40 01:30: 01:26 ONCE, 1 [place] mg 00 :00 dose, On Medical [facility] Branch 06/18/23 at 2029, ALMA levoFLOXaci 2022-08- No 500mg 500 mg, U nivers n 0-24 10-24 Oral, ity of (LEVAQUIN) 01:30: 01:26 ONCE, 1 [place] as tablet 500 00 :00 dose, On Medic al mg [facility] 06/18/23 at 2029, ALMA
Re ason for Anti-Infec tive: Documented Infection< br>Doc[place] Infection Site: Respirator y
Durat ion of Therapy: Other (see Comments) benzonatate 2022-08- No 100mg 100 mg, U nivers (TESSALON 0-24 10-24 Oral, ity of PERLES) 01:30: 01:26 ONCE, 1 [place] capsule 100 00 :00 dose, On Medi cale mg [facility] 06/18/23 at 2029, ALMA ipratropium 2022-08- No 3mL 3 mL, Univ ers -albuteroL 0-24 10-24 Inhalation it y of (DUONEB) 01:00: 00:17 , ONCE, 1 [place] as 0.5 mg-3 00 :00 dose, On Medical mg(2.5 mg [facility] base)/3 mL 06/18/23 nebulizer at 2000, solution 3 ALMA mL ALBUTEROL 2022-08- No Inhale. Univ ers SULFATE HFA 0-23 - ity of INHALE 20:21: 00:00 [place] 36 :00 [facility] Branch benzonatate 2022-08 Yes [id number] 100mg Take 1 Univers 100 mg 0-23 capsule by ity of capsule 00:00: mouth 3 [place] 00 (three) Medical times Branch daily as needed for Cough. acetaminoph 2022-08 Yes [id number] 1{tbl} Take 1-2 Univers en-codeine 0-23 tablets by ity of 300-30 mg 00:00: mouth [place] tablet 00 every 6 Medical (six) Branch hours as needed for Pain (scale 4-6). Indication s: acute pain, cough levoFLOXaci 2022-08 Yes [id number] 500mg Take 1 Univers n 500 mg 0-23 tablet by ity of tablet 00:00: mouth [place] 00 every 24 Medical (twenty-fo Branch ur) hours. albuterol 2022-08 Yes [id number] 2{puff} Inhale 2 Univers 90 0-23 Puffs ity of mcg/actuati 00:00: every 4 [place] as on inhaler 00 (four) Medical hours as Branch needed for Wheezing or Shortness of Breath. albuterol 2022-08 Yes [id number] 2.5mg Inhale 0.5 Univers 2.5 mg/0.5 0-23 mL every 6 ity of mL 00:00: (six) [place] nebulizer 00 hours as Medica l solution needed for Branc h Wheezing. Nebulizer & 2022-08 Yes [id number] Use as Univers Compressor 0-23 directed ity o f For Neb 00:00: [place] Chloe 00 Medical Branch benzonatate 2022-08 Yes [id number] 100mg Take 1 Univers 100 mg 0-23 capsule by ity of capsule 00:00: mouth 3 [place] 00 (three) Medical times Branch daily as needed for Cough. acetaminoph 2022-08 Yes [id number] 1{tbl} Take 1-2 Univers en-codeine 0-23 tablets by ity of 300-30 mg 00:00: mouth [place] tablet 00 every 6 Medical (six) Branch hours as needed for Pain (scale 4-6). Indication s: acute pain, cough levoFLOXaci 2022-08 Yes [id number] 500mg Take 1 Univers n 500 mg 0-23 tablet by ity of tablet 00:00: mouth [place] every 24 Medical (twenty-fo Branch ur) hours. albuterol 2022-08 Yes [id number] 2{puff} Inhale 2 Univers 90 0-23 Puffs ity of mcg/actuati 00:00: every 4 [place] as on inhaler 00 (four) Medical hours as Branch needed for Wheezing or Shortness of Breath. albuterol 2022-08 Yes [id number] 2.5mg Inhale 0.5 Univers 2.5 mg/0.5 0-23 mL every 6 ity of mL 00:00: (six) [place] nebulizer 00 hours as Medica l solution needed for Branc h Wheezing. Nebulizer & 2022-08 Yes [id number] Use as Univers Compressor 0-23 directed ity o f For Neb 00:00: [place] Chloe 00 Medical Branch albuterol 2022-08 Yes [id number] 2{puff} Inhale 2 Univers 90 0-23 Puffs ity of mcg/actuati 00:00: every 4 [place] as on inhaler 00 (four) Medical hours as Branch needed for Wheezing or Shortness of Breath. albuterol 2022-08 Yes [id number] 2.5mg Inhale 0.5 Univers 2.5 mg/0.5 0-23 mL every 6 ity of mL 00:00: (six) [place] nebulizer 00 hours as Medica l solution needed for Branc h Wheezing. Nebulizer & 2022-08 Yes [id number] Use as Univers Compressor 0-23 directed ity o f For Neb 00:00: [place] Medical Branch benzonatate 2022-08- No [id number] 100mg Take 1 Univers 100 mg 0-23 11-24 capsule by ity of capsule 00:00: 00:00 mouth 3 [place] 00 :00 (three) Medical times Branch daily as needed for Cough. acetaminoph 2022-08- No [id number] 1{tbl} Take 1-2 Univers en-codeine 0-23 11-24 tablets by it y of 300-30 mg 00:00: 00:00 mouth [place] tablet 00 :00 every 6 Medical (six) Branch hours as needed for Pain (scale 4-6). Indication s: acute pain, cough levoFLOXaci 2022-08- No [id number] 500mg Take 1 Univers n 500 mg 0-23 11-24 tablet by ity o f tablet 00:00: 00:00 mouth [place] 00 :00 every 24 Medical (twenty-fo Branch ur) hours. predniSONE 2022-08- Yes [id number] 60mg Take 3 Univers 20 mg 0-23 10-28 tablets by ity of tablet 00:00: 04:59 mouth [place] 00 :00 every Medical morning Branch for 4 days. predniSONE 2022-08- Yes [id number] 60mg Take 3 Univers 20 mg 0-23 10-28 tablets by ity of tablet 00:00: 04:59 mouth [place] 00 :00 every Medical morning Branch for 4 days. methylPREDN 2019-0 Yes [id number] Take by Univers ISolone 3-05 mouth ity of (MEDROL, 00:00: SEE-INSTRU [place] STEPHEN,) 4 mg 00 CTIONS. Medica l tablets follow Branch package directions benzocaine- 2020-0 Yes [id number] 1{lozen Take 1 Univers menthol 3-05 ge} Lozenge by ity of (CEPACOL 00:00: mouth [place] SORE 00 every 4 Medical THROAT, (four) Branch EVA-MEN,) hours as lozenge needed for Sore throat. methylPREDN 2020-0 Yes [id number] Take by Univers ISolone 3-05 mouth ity of (MEDROL, 00:00: SEE-INSTRU [place] STEPHEN,) 4 mg 00 CTIONS. Medica l tablets follow Branch package directions benzocaine- 2020-0 Yes [id number] 1{lozen Take 1 Univers menthol 3-05 ge} Lozenge by ity of (CEPACOL 00:00: mouth [place] SORE 00 every 4 Medical THROAT, (four) Branch EVA-MEN,) hours as lozenge needed for Sore throat. benzocaine- 2020-0 Yes [id number] 1{lozen Take 1 Univers menthol 3-05 ge} Lozenge by ity of (CEPACOL 00:00: mouth [place] SORE 00 every 4 Medical THROAT, (four) Branch EVA-MEN,) hours as lozenge needed for Sore throat. methylPREDN 2020-0 Yes [id number] Take by Univers ISolone 3-05 mouth ity of (MEDROL, 00:00: SEE-INSTRU [place] STE[place]EN,) 4 mg 00 CTIONS. Medica l tablets follow Branch package directions benzocaine- 2020-0 Yes [id number] 1{lozen Take 1 Univers menthol 3-05 ge} Lozenge by ity of (CEPACOL 00:00: mouth [place] SORE 00 every 4 Medical THROAT, (four) Branch EVA-MEN,) hours as lozenge needed for Sore throat. methylPREDN 2020-0 Yes [id number] Take by Univers ISolone 3-05 mouth ity of (MEDROL, 00:00: SEE-INSTRU [place] STEPHEN,) 4 mg 00 CTIONS. Medica l tablets follow Branch package directions benzocaine- 2020-0 Yes [id number] 1{lozen Take 1 Univers menthol 3-05 ge} Lozenge by ity of (CEPACOL 00:00: mouth [place] SORE 00 every 4 Medical THROAT, (four) Branch EVA-MEN,) hours as lozenge needed for Sore throat. methylPREDN 2020-0 Yes [id number] Take by Univers ISolone 3-05 mouth ity of (MEDROL, 00:00: SEE-INSTRU [place] STEPHEN,) 4 mg 00 CTIONS. Medica l tablets follow Branch package directions benzocaine- 2020-0 Yes [id number] 1{lozen Take 1 Univers menthol 3-05 ge} Lozenge by ity of (CEPACOL 00:00: mouth [place] SORE 00 every 4 Medical THROAT, (four) Branch EVA-MEN,) hours as lozenge needed for Sore throat. methylPREDN 2020-0 Yes [id number] Take by Univers ISolone 3-05 mouth ity of (MEDROL, 00:00: SEE-INSTRU [place] STEPHEN,) 4 mg 00 CTIONS. Medica l tablets follow Branch package directions benzocaine- 2020-0 Yes [id number] 1{lozen Take 1 Univers menthol 3-05 ge} Lozenge by ity of (CEPACOL 00:00: mouth [place] SORE 00 every 4 Medical THROAT, (four) Branch EVA-MEN,) hours as lozenge needed for Sore throat. methylPREDN 2020-0 2023- No [id number] Take by Univers ISolone 3-05 11-24 mouth ity of (MEDROL, 00:00: 00:00 [place] 4 mg 00 :00 CTIONS. Medica l tablets follow Branch package directions ALBUTEROL 2019-0 Yes Inhale. Unive rs SULFATE HFA 9-04 ity of INHALE 15:59: [address] ALBUTEROL 2019-0 Yes Inhale. Unive rs SULFATE HFA 9-04 ity of INHALE 15:59: [address] ALBUTEROL 2019-0 Yes Inhale. Unive rs SULFATE HFA 9-04 ity of INHALE 15:59: [address] ALBUTEROL 2019-0 Yes Inhale. Unive rs SULFATE HFA 9-04 ity of INHALE 15:59: [address] Vital Signs Vital Name Observation Time Observation Value Comments Source Systolic blood 2023-07-20 17:49:00 134 mm[Hg] Univer sity of pressure [place] [facility] Diastolic blood 2023-07-20 17:49:00 61 mm[Hg] Unive rsity of pressure [place] [facility] Heart rate 2023-07-20 17:49:00 132 /min Universi ty of [place] [facility] Body temperature 2023-07-20 17:49:00 39.61 Mary Univ ersity of [place] [facility] Respiratory rate 2023-07-20 17:49:00 20 /min Univ ersity of [place] [facility] Body height 2023-07-20 17:49:00 160 cm Universi ty of [place] [facility] Body weight 2023-07-20 17:49:00 147.419 kg Universi ty of [place] [facility] BMI 2023-07-20 17:49:00 57.57 kg/m2 Universi ty of [place] [facility] Oxygen saturation in 2023-07-20 17:49:00 97 /min University of Arterial blood by [place] [facility] Pulse oximetry Branch Systolic blood 2023-06-18 22:54:00 136 mm[Hg] Univer sity of pressure [place] [facility] Diastolic blood 2023-06-18 22:54:00 101 mm[Hg] Unive rsity of pressure [place] [facility] Heart rate 2023-06-18 22:54:00 90 /min Universi ty of [place] [facility] Body temperature 2023-06-18 22:54:00 37.28 Mary Univ ersity of [place] [facility] Respiratory rate 2023-06-18 22:54:00 16 /min Univ ersity of [place] [facility] Body height 2023-06-18 22:54:00 160 cm Universi ty of [place] [facility] Body weight 2023-06-18 22:54:00 145.151 kg Universi ty of [place] [facility] BMI 2023-06-18 22:54:00 56.69 kg/m2 Universi ty of [place] [facility] Systolic blood 2022-10-24 18:21:00 152 mm[Hg] Univer sity of pressure [place] [facility] Diastolic blood 2022-10-24 18:21:00 102 mm[Hg] Unive rsity of pressure [place] [facility] Heart rate 2022-10-24 18:21:00 85 /min Universi ty of [place] [facility] Body temperature 2022-10-24 18:21:[address] [facility] Respiratory rate 2022-10-24 18:21:00 18 /min [facility] ersity of [facility] Body height 2022-10-24 18:21:00 160 cm Universi ty of [place] [facility] [place] Body weight 2022-10-24 18:21:00 151.955 kg Universi ty of [place] [facility] [place] BMI 2022-10-24 18:21:00 59.34 kg/m2 Universi ty of [facility] Oxygen saturation in 2022-10-24 18:21:00 98 /min [facility] Arterial blood by [place] [facility] Pulse oximetry Branch Systolic blood 2022-10-24 16:36:00 127 mm[Hg] Univer sit of pressure [facility] Diastolic blood 2022-10-24 16:36:00 81 mm[Hg] Unive [facility] Heart rate 2022-10-24 16:36:00 80 /min Universi ty of [facility] Body temperature 2022-10-24 16:35:[address] [facility] Respiratory rate 2022-10-24 16:35:00 20 /min [facility] Body height 2022-10-24 16:35:00 160 cm Universi ty of [facility] Body weight 2022-10-24 16:35:00 147.963 kg Universi ty of [facility] BMI 2022-10-24 16:35:00 57.78 kg/m2 Universi ty [facility] Procedures Procedure Date / Time Performed Performing Clinician [facility] e ASSIGNMENT OF BENEFITS 2023-07-20 18:26:42 Doctor Unassigned, No [facility] Name Medical Branch CONSENT/REFUSAL FOR 2023-07-20 17:42:55 Doctor Unassigned, No [facility] DIAGNOSIS AND Name Medical Branch TREATMENT XR CHEST 2 VW 2023-06-19 00:12:00 Faustina Mojica [place] o f [facility] RAPID STREP SCREEN FOR 2023-06-19 00:07:00 Faustina Mojica [facility] A [facility] RAPID INFLUENZA A/B 2023-06-19 00:07:00 Faustina Mojica [facility] COVID-19 (ID NOW RAPID 2023-06-19 00:07:00 Faustina Mojica [facility] TESTING) Medical Branch NOTICE OF PRIVACY 2023-06-18 22:41:52 Doctor Unassigned, No [facility] PRACTICES Name [facility] CONSENT/REFUSAL FOR 2023-06-18 22:40:52 [facility]ass[facility], [facility] TREATMENT URINALYSIS 2022-10-24 21:30:00 Braden [facility] COMP. METABOLIC PANEL 2022-10-24 21:26:00 Melanie Feliciano [facility] ([id number]) [facility] CBC WITH DIFF 2022-10-24 21:26:00 Braden [facility] POCT TEST 2022-10-24 20:54:00 Melanie Feliciano [facility] CONSENT/REFUSAL FOR 2022-10-24 18:14:59 Doctor Unassigned, No [facility] DIAGNOSIS AND [facility] TREATMENT ASSIGNMENT OF BENEFITS 2022-10-24 16:15:58 Doctor Unassigned, No [facility] Encounters Start End Encounter Admission Attending Care Care Encounter Source Date/Time Date/Time Type Type Clinicians Facility Department ID 2021-06-23 Emergency [facility] [id number] Univers [facility]-20 2023-07-20 Emergency X [facility] ERT [id number] Univers 11:51:00 12:27:00 BIBIANA judd [facility] 2023-07-20 2023-07-20 [facility] [id number] Univers 11:51:00 12:27:00 Bibiana RODRIGUEZ 350.1.13.10 ity [facility] 4.2.7.2.686 [facility] [id number] [place] [address] Branch 2023-06-20 2023-06-20 Letter Faculty, [facility] 1.2.840.114 [id number] Univers 00:00:00 00:00:00 (Out) Pulmonary JENNIFER 350.1.13.10 ity [facility] 4.2.7.[address] [facility] [id number] La dical NAL 085 [facility] 2023-06-18 2023-06-18 Emergency X CESAR [facility] ERT [id number] Univers 17:56:00 21:03:00 FAUSTINA judd [facility] 2023-06-18 2023-06-18 [facility] [id number] Univers 17:56:00 [facility]:03:[facility] [id number] i ty of [place] 4.2.7.2.686 [facility] [id number] [address] 2023-05-28 2023-05-28 Outpatient SFA [facility] [id number] Chad 10:26:50 10:26:50 1002 F Uriah 2022-10-24 2022-10-24 Emergency [facility] [id number] Univers 12:22:00 17:04:00 MELANIE [facility] 2022-10-24 2022-10-24 [facility] [id number] Univers 12:22:00 17:04:00 [facility] KAHULUI 350.1.13.10 i ty of [place] 4.2.7.2.686 [facility] [id number] [address] 2022-10-24 2022-10-24 Outpatient Efren HUANG [facility] [id number] Univers 10:30:00 12:01:35 TRISTA judd [facility] 2022-10-24 2022-10-24 Office Provider, [facility] 1 .2.840.114 [id number] Univers 10:30:00 12:01:35 Visit Trista Huang [employer]INE[employer] DES[employer] 350.1.13.1 0 ity [facility] 4.2.7.2.686 [facility] as MATERNAL [id number] Med ical & CHILD [address] [place] [address] 2022-10-24 2022-10-24 Orders Doctor SANCHEZ 1.2.840.114 [id number] Univers 00:00:00 00:00:00 Only Unassigned, NORA 350.1.13.10 ity of [place] [facility] 4.2.7.2.686 [place] as [id number] [facility] cale 009 Branch Results Test Description Test Time Test Comments Results Result Comments Source COMP. METABOLIC PANEL (53716) 2022-10-24 22:10:12 Test Item Value Reference Range Interpretation Comme nts NA (test code = 1397051905) 136 mmol/L 135-145 K (test code = 2429883159) 4.5 mmol/L 3.5-5.0 CL (test code = 4009309170) 101 mmol/L 98-108 CO2 TOTAL (test code = 3806892644) 27 mmol/L 23-31 AGAP (test code = 9658457473) 8 2-16 BUN (test code = 2045939353) 9 mg/dL 7-23 GLUCOSE (test code = 3766033033) 84 mg/dL 70-110 CREATININE (test code = 0.63 mg/dL 0.50-1.04 4663634902) TOTAL BILI (test code = 0.4 mg/dL 0.1-1.9 7198103108) CALCIUM (test code = 1900418399) 8.8 mg/dL 8.6-10.6 T PROTEIN (test code = 2969098111) 6.6 g/dL 6.3-8.2 ALBUMIN (test code = 7139620328) 4.1 g/dL 3.5-5.0 ALK PHOS (test code = 3661179413) 60 U/L 34-122 ALTv (test code = 1742-6) 46 U/L 5-35 H AST(SGOT) (test code = 7814518271) 38 U/L 13-40 eGFR (test code = 5819109578) 112.5 mL/min/1.73m2 RON (test code = RON) Association of Glomerular Filtration Rate (GFR) and Staging of Kidney Disease* + +-------- + ------+| GFR (mL/min/1.73 m2) ?| With Kidney Damage ?| ?Without Kidney Damage+ +-- + +| ?>90 ?| ?Stage one ?| ? Normal ?+ +------- + -------+| ?60-89 ?| ?Stage two ?| ? Decreased GFR ? + +-------- + ------+| ?30-59 ?| ?Stage three ?| ? Stage three ? + +-------- + ------+| ?15-29 ?| ?Stage four ? | ? Stage four ?+ +------- + -------+| ?<15 (or dialysis) ? ?| ?Stage five ? | ? Stage five ?+ +------- + -------+ *Each stage assumes the associated GFR level has been in effect for at least three months. ?Stages 1 to 5, with or without kidney disease, indicate chronic kidney disease. Notes: Determination of stages one and two (with eGFR >59mL/min/1.73 m2) requires estimation of kidney damage for at least three months as defined by structural or functional abnormalities of the kidney, manifested by either:Pathological abnormalities or Markers of kidney damage (including abnormalities in the composition of the blood or urine or abnormalities in imaging tests). Lab Interpretation (test code = Abnormal 12958-9) [facility] WITH [id number] 21:51:48 Test Item Value Reference Range Interpretation Comments WBC (test code = 8.55 See_Comment [Automated message] 2590-2) The system [employer] generated this result transmitted ref erence range: 4.30 - 1 1.10 10*3/?L. The re ference range was not u sed to interpret this result as normal/abnor mal. RBC (test code = 5.04 See_Comment [Automated message] 009-8) The system [employer] generated this result transmitted ref erence range: 3.93 - 5 .25 10*6/?L. The re ference range was not u sed to interpret this result as normal/abnor mal. HGB (test code = 13.3 g/dL 11.6-15.0 718-7) HCT (test code = 41.3 % 35.7-45.2 4544-3) MCV (test code = 81.9 fL 80.6-95.5 787-2) MCH (test code = 26.4 pg 25.9-32.8 785-6) MCHC (test code = 32.2 g/dL 31.6-35.1 786-4) RDW-SD (test code 39.6 fL 39.0-49.9 = 61374-4) RDW-CV (test code 13.5 % 12.0-15.5 = 788-0) PLT (test code = 330 See_Comment [Automated message] 777-3) The system whic h generated this result transmitted ref erence range: 166 - 35 8 10*3/?L. The re ference range was not u sed to interpret this result as normal/abnor mal. MPV (test code = 10.0 fL 9.5-12.9 36340-1) NRBC/100 WBC (test 0.0 See_Comment [Automat ed message] code = 2044235902) The syste m which generated this result transmitted ref erence range: 0.0 - 10 .0 /100 WBCs. The refer ence range was not u sed to interpret this result as normal/abnor mal. NRBC x10^3 (test See_Comment [Automated message] code = 0445293857) The syste m which generated this result transmitted ref erence range: 10*3/?L. The reference range was not used to interpr et this result as normal/abnormal . GRAN MAT (NEUT) % 70.2 % (test code = 770-8) IMM GRAN % (test 0.60 % code = 1971068829) LYMPH % (test code 19.2 % = 736-9) MONO % (test code 7.3 % = 5905-5) EOS % (test code = 2.1 % 713-8) BASO % (test code 0.6 % = 706-2) GRAN MAT 6.01 10*3/uL 1.88-7.09 x10^3(ANC) (test code = 2089345754) IMM GRAN x10^3 0.05 10*3/uL 0.00-0.06 (test code = 7790873674) LYMPH x10^3 (test 1.64 10*3/uL 1.32-3.29 code = 731-0) MONO x10^3 (test 0.62 10*3/uL 0.33-0.92 code = 742-7) EOS x10^3 (test 0.18 10*3/uL 0.03-0.39 code = 711-2) BASO x10^3 (test 0.05 10*3/uL 0.01-0.07 code = 704-7) [id number] Test Item Value Reference Range Interpretation Comments POCT PREG (test code = 1605) negative On board controls acceptable with present C Line (test code = 3574) POCT PREG LOT # (test code = 3575) [id number] POCT PREG TEST DATE (test 11/25/2023 code = 3576) Lab Interpretation (test code = Normal 20439-4) [facility]"
[2023-07-21 17:57] LABS: SARS-COV-2 RT PCR NEGATIVE (NEGATIVE)
--- NOTE | 2023-07-21 18:00 | ER ---
Nurse's Notes [facility] Name: Tonya Barrera Age: 28 yrs Sex: Female : 1995 Arrival Date: 07/21/2023 Time: 16:14 Bed IW1 Private MD: Diagnosis: Influenza due to identified novel influenza A virus-B Presentation: 07/21 16:32 Chief complaint: Patient states: cough, fever, chills, bodyaches, congestion since ko1 Sunday. Coronavirus screen: chills, congestion, cough unrelated to allergies, headache, muscle pain, runny nose, shaking with chills, sore throat, Client presents with at least one sign or symptom that may indicate coronavirus-19. Standard/surgical mask placed on the client. Ebola Screen: No symptoms or risks identified at this time. Initial Sepsis Screen: Does the patient meet any 2 criteria? No. Patient's initial sepsis screen is negative. Does the patient have a suspected source of infection? No. Patient's initial sepsis screen is negative. Risk Assessment: Do you want to hurt yourself or someone else? Patient reports no desire to harm self or others. Onset of symptoms was July 21, 2023. 16:32 Method Of Arrival: Ambulatory ko1 16:32 Acuity: TEMO 4 ko1 Triage Assessment: 16:33 General: Appears ill, Behavior is calm, cooperative, appropriate for age. Pain: ko1 Complains of pain in general body aches. 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 - Social history:: Smoking status: Patient denies any tobacco usage or history of. Screenin:16 [facility] ED Fall Risk Assessment (Adult) History of falling in the last 3 months, ko1 including since admission No falls in past 3 months (0 pts) Confusion or Disorientation No (0 pts) Intoxicated or Sedated No (0 pts) Impaired Gait No (0 pts) Mobility Assist Device Used No (0 pt) Altered Elimination No (0 pt) Score/Fall Risk Level 0 - 2 = Low Risk Oriented to surroundings, Maintained a safe environment, Educated pt \T\ family on fall prevention, incl call for assistance when getting out of bed, Assessed \T\ reinforced patient's understanding of fall precautions, Provided non-skid footwear, Hourly rounding (assess needs \T\ fall precautionary measures) done, Used ambulatory aids as needed (educated on \T\ assisted with). Abuse screen: Denies threats or abuse. Denies injuries from another. Nutritional screening: No deficits noted. Tuberculosis screening: No symptoms or risk factors identified. Assessment: 17:14 Reassessment: No changes from previously documented assessment. Patient and/or family ll1 updated on plan of care and expected duration. Pain level reassessed. Patient is alert, oriented x 3, equal unlabored respirations, skin warm/dry/pink. Vital Signs: 16:32 BP 147 / 103; Pulse 110; Resp 18; Temp 97.5; Pulse Ox 100% ; ko1 ED Course: 16:18 Patient arrived in ED. mg5 16:19 Yara Fields [facility]-C [facility]. kb 16:19 Haleigh Santamaria MD is Attending Physician. kb 16:33 Triage completed. ko1 16:33 Arm band placed on right wrist. Patient placed in waiting room, Patient notified of ko1 wait time. 17:14 COVID-19/FLU A+B Sent. ll1 18:16 Katelynn Gomez, RN is Primary Nurse. ko1 18:16 Patient has correct armband on for positive identification. Provided Education on: NA. ko1 18:16 No provider procedures requiring assistance completed. Patient did not have IV access ko1 during this emergency room visit. Administered Medications: No medications were administered Medication: 18:16 VIS not applicable for this client. ko1 Outcome: 18:00 Discharge ordered by . kb 18:16 Discharged to home ambulatory, ko1 18:16 Condition: stable 18:16 Discharge instructions given to patient, Instructed on discharge instructions, follow up and referral plans. medication usage, Demonstrated understanding of instructions, follow-up care, medications, Prescriptions given X 2, 18:28 Patient left the ED. ko1 Signatures: Yara Fields FNP-C FNP-Saima Green RN RN ll1 Katelynn Gomez, NEIDA RN ko1 Concetta Anthony mg5
--- NOTE | 2023-07-21 18:00 | EDPHYS ---
Physician Documentation [facility] Name: Tonya Barrera Age: 28 yrs Sex: Female : 1995 Arrival Date: 07/21/2023 Time: 16:14 Bed IW1 Private MD: ED Physician Haleigh Santamaria HPI: 07/21 18:23 This 28 yrs old Female presents to ER via Ambulatory with complaints of Flu kb Symptoms. 18:23 Patient is a 28-year-old female with a history of asthma who presents for fever, kb chills, cough, congestion, body aches that started 6 days ago.. 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 - Social history:: Smoking status: Patient denies any tobacco usage or history of. ROS: 18:23 Abdomen/GI: Negative for abdominal pain, nausea, vomiting, diarrhea, and constipation, kb 18:23 Constitutional: Positive for body aches, chills, fever, malaise, 18:23 ENT: Positive for rhinorrhea, sinus congestion, 18:23 Respiratory: Positive for cough, 18:23 All other systems are negative, Exam: 18:23 Constitutional: This is a well developed, well nourished patient who is awake, alert, kb and in no acute distress. Head/Face: Normocephalic, atraumatic. ENT: Moist Mucous membranes Cardiovascular: Regular rate Respiratory: Respirations even and unlabored. No increased work of breathing. Talking in full sentences Skin: Warm, dry with normal turgor. Normal color. MS/ Extremity: Pulses equal, no cyanosis. Neurovascular intact. Full, normal range of motion. Neuro: Awake and alert, GCS 15, oriented to person, place, time, and situation. Moves all extremities. Normal gait. Vital Signs: 16:32 BP 147 / 103; Pulse 110; Resp 18; Temp 97.5; Pulse Ox 100% ; ko1 MDM: 16:19 Patient medically screened. kb 18:23 Differential diagnosis: Flu, COVID, URI, pneumonia. Data reviewed: vital signs, nurses kb notes. I considered the following discharge prescriptions or medication management in the emergency department I discussed and recommended Over The Counter medications, Antibiotics: At this time antibiotics are not recommended, Antivirals: At this time, antivirals are not recommended. Test considered but Not performed: X-ray: Chest x-ray considered but lungs clear bilaterally, respirations even and unlabored, oxygen 100% on room air.. Counseling: I had a detailed discussion with the patient and/or guardian regarding the historical points, exam findings, and any diagnostic results supporting the discharge/admit diagnosis, lab results, radiology results, the need for outpatient follow up, a family practitioner, to return to the emergency department if symptoms worsen or persist or if there are any questions or concerns that arise at home. 07/21 17:09 Order name: COVID-19/FLU A+B; Complete Time: 17:59 ll1 Administered Medications: No medications were administered Disposition Summary: 07/21/23 18:00 Discharge Ordered Notes: Location: Home kb Condition: Stable kb Diagnosis - Influenza due to identified novel influenza A virus - B kb Followup: kb - With: Emergency Department - When: As needed - Reason: Worsening of condition Followup: kb - With: Private Physician - When: 2 - 3 days - Reason: Recheck today's complaints, Continuance of care, Re-evaluation by your physician Discharge Instructions: - Discharge Summary Sheet kb - Influenza, Adult, [id number] kb Forms: - Medication Reconciliation Form kb - Thank You Letter kb - Antibiotic Education kb - Prescription Opioid Use kb - Patient Portal Instructions kb - Leadership Thank You Letter kb Prescriptions: - Zofran 4 mg Oral tablet - take 1 tablet ORAL route every 6 hours As needed; 10 tablet; Refills: 0, kb Product Selection Permitted - Tessalon Perles 100 mg Oral Capsule - take 1 capsule ORAL route every 8 hours As needed; 15 capsule; Refills: 0, kb Product Selection Permitted Signatures: Dispatcher [employer] Yara Marrero, ANANTH-C ANANTH-Katelynn Camargo, RN RN ko1
[2023-07-21 19:27] VITALS: BP 147/103; TEMP 97.5; O2SAT 100
== END 2023-07-21 18:28 | disposition home or self-care (01) ==
LOC: ER 16:14
DX: J10.1 Influenza due to other identified influenza virus with other respiratory manifestations (principal); Z11.52 Encounter for screening for COVID-19
CPT/HCPCS: 0240U; 99283